=== PATIENT | female | born 1945 | race Caucasian/White ===

== ENCOUNTER → 2018-03-26 | Outpatient (CLI) | payer OTHER ==
[~2018-03-26] MED LIST: ADULT LOW DOSE81 MG PO; ALLOPURINOL 10100 M1 PO; ASPIR 8181 MG PO; CIPRO250 M1 PO; CLARITIN10 M1 PO; FISH OIL 1,0001 EAC5 PO; FISHOIL PO; FLEXERIL PO; FLONASE 0.05%50 MCG NS; HYDROCODON-ACE1 EAC7 PO; HYDROCODON-ACE1 EACH PO; LEVOTHROID100 MC1 PO; LEVOXYL100 MCG PO; LORTAB 5-500 T1 EAC1 PO; NEPHROCAPS SOFT1 CAP PO; NIACINAMIDE100 MG PO; NORVASC 5 MG TAB5 MG PO; OMEPRAZOLE20 M2 PO; PLAVIX 75 MG TA75 MG PO; RENA-VITE PO; RENAGEL PO; RENAGEL800 MG PO; RENVELA800 MG PO; SENSIPAR60 MG PO; SIMVASTATIN20 MG PO; TRIPHROCAPS SOFT1 MG PO; VENTOLIN HFA 1818 GM INH; VICODIN 5-5001 EACH PO; ZOCOR40 MG PO; ZPAK PO
== END ==
LOC: HYPER 03-20 09:46
DX: I87.333 Chronic venous hypertension (idiopathic) with ulcer and inflammation of bilateral lower extremity (principal); L97.811 Non-pressure chronic ulcer of other part of right lower leg limited to breakdown of skin; L97.821 Non-pressure chronic ulcer of other part of left lower leg limited to breakdown of skin; M86.8X8 Other osteomyelitis, other site; N18.6 End stage renal disease; N25.81 Secondary hyperparathyroidism of renal origin; I25.118 Atherosclerotic heart disease of native coronary artery with other forms of angina pectoris; I47.1 Supraventricular tachycardia; I73.9 Peripheral vascular disease, unspecified; I25.2 Old myocardial infarction; E78.5 Hyperlipidemia, unspecified; J42 Unspecified chronic bronchitis; K21.9 Gastro-esophageal reflux disease without esophagitis; M10.9 Gout, unspecified; R73.03 Prediabetes; F17.200 Nicotine dependence, unspecified, uncomplicated; Z90.710 Acquired absence of both cervix and uterus; Z98.49 Cataract extraction status, unspecified eye; Z99.2 Dependence on renal dialysis; Z87.39 Personal history of other diseases of the musculoskeletal system and connective tissue

== ENCOUNTER → 2018-04-02 | Outpatient (CLI) | payer OTHER | LOC: HYPER 07:18 | DX: I87.333 Chronic venous hypertension (idiopathic) with ulcer and inflammation of bilateral lower extremity (principal); I70.248 Atherosclerosis of native arteries of left leg with ulceration of other part of lower leg; L97.821 Non-pressure chronic ulcer of other part of left lower leg limited to breakdown of skin; I70.238 Atherosclerosis of native arteries of right leg with ulceration of other part of lower leg; L97.811 Non-pressure chronic ulcer of other part of right lower leg limited to breakdown of skin; M86.8X8 Other osteomyelitis, other site; E78.5 Hyperlipidemia, unspecified; N18.6 End stage renal disease; N25.81 Secondary hyperparathyroidism of renal origin; I25.118 Atherosclerotic heart disease of native coronary artery with other forms of angina pectoris; I47.1 Supraventricular tachycardia; I25.2 Old myocardial infarction; J42 Unspecified chronic bronchitis; R73.03 Prediabetes; M10.9 Gout, unspecified; F17.200 Nicotine dependence, unspecified, uncomplicated; Z99.2 Dependence on renal dialysis; Z87.39 Personal history of other diseases of the musculoskeletal system and connective tissue ==

== ENCOUNTER → 2018-04-16 | Outpatient (CLI) | payer OTHER | LOC: HYPER 07:21 | DX: I87.333 Chronic venous hypertension (idiopathic) with ulcer and inflammation of bilateral lower extremity (principal); I70.238 Atherosclerosis of native arteries of right leg with ulceration of other part of lower leg; L97.812 Non-pressure chronic ulcer of other part of right lower leg with fat layer exposed; I70.248 Atherosclerosis of native arteries of left leg with ulceration of other part of lower leg; L97.821 Non-pressure chronic ulcer of other part of left lower leg limited to breakdown of skin; M86.8X8 Other osteomyelitis, other site; E78.5 Hyperlipidemia, unspecified; I25.118 Atherosclerotic heart disease of native coronary artery with other forms of angina pectoris; I47.1 Supraventricular tachycardia; I25.2 Old myocardial infarction; J42 Unspecified chronic bronchitis; M10.9 Gout, unspecified; N18.6 End stage renal disease; N25.81 Secondary hyperparathyroidism of renal origin; R73.03 Prediabetes; F17.200 Nicotine dependence, unspecified, uncomplicated; Z99.2 Dependence on renal dialysis; Z87.39 Personal history of other diseases of the musculoskeletal system and connective tissue ==

== ENCOUNTER → 2018-06-11 | Outpatient (CLI) | payer OTHER | LOC: HYPER 04-30 15:43 | DX: I87.333 Chronic venous hypertension (idiopathic) with ulcer and inflammation of bilateral lower extremity (principal); I70.238 Atherosclerosis of native arteries of right leg with ulceration of other part of lower leg; L97.811 Non-pressure chronic ulcer of other part of right lower leg limited to breakdown of skin; I70.248 Atherosclerosis of native arteries of left leg with ulceration of other part of lower leg; L97.821 Non-pressure chronic ulcer of other part of left lower leg limited to breakdown of skin; M86.8X8 Other osteomyelitis, other site; E78.5 Hyperlipidemia, unspecified; I12.0 Hypertensive chronic kidney disease with stage 5 chronic kidney disease or end stage renal disease; N18.6 End stage renal disease; N25.81 Secondary hyperparathyroidism of renal origin; I25.118 Atherosclerotic heart disease of native coronary artery with other forms of angina pectoris; I47.1 Supraventricular tachycardia; I25.2 Old myocardial infarction; J42 Unspecified chronic bronchitis; M10.9 Gout, unspecified; R73.03 Prediabetes; F17.200 Nicotine dependence, unspecified, uncomplicated; Z99.2 Dependence on renal dialysis; Z87.39 Personal history of other diseases of the musculoskeletal system and connective tissue ==

== ENCOUNTER → 2018-06-18 | Outpatient (CLI) | payer OTHER | LOC: HYPER 07:03 | DX: I87.333 Chronic venous hypertension (idiopathic) with ulcer and inflammation of bilateral lower extremity (principal); I70.238 Atherosclerosis of native arteries of right leg with ulceration of other part of lower leg; L97.812 Non-pressure chronic ulcer of other part of right lower leg with fat layer exposed; I70.248 Atherosclerosis of native arteries of left leg with ulceration of other part of lower leg; L97.822 Non-pressure chronic ulcer of other part of left lower leg with fat layer exposed; M86.8X8 Other osteomyelitis, other site; E78.5 Hyperlipidemia, unspecified; I25.118 Atherosclerotic heart disease of native coronary artery with other forms of angina pectoris; I47.1 Supraventricular tachycardia; I25.2 Old myocardial infarction; J42 Unspecified chronic bronchitis; N18.6 End stage renal disease; M10.9 Gout, unspecified; R73.03 Prediabetes; F17.200 Nicotine dependence, unspecified, uncomplicated; Z99.2 Dependence on renal dialysis; Z87.39 Personal history of other diseases of the musculoskeletal system and connective tissue ==

== ENCOUNTER → 2018-06-25 | Outpatient (CLI) | payer OTHER | LOC: HYPER 06:36 | DX: I87.333 Chronic venous hypertension (idiopathic) with ulcer and inflammation of bilateral lower extremity (principal); I70.248 Atherosclerosis of native arteries of left leg with ulceration of other part of lower leg; L97.822 Non-pressure chronic ulcer of other part of left lower leg with fat layer exposed; I70.238 Atherosclerosis of native arteries of right leg with ulceration of other part of lower leg; L97.812 Non-pressure chronic ulcer of other part of right lower leg with fat layer exposed; M86.8X8 Other osteomyelitis, other site; E78.5 Hyperlipidemia, unspecified; I12.0 Hypertensive chronic kidney disease with stage 5 chronic kidney disease or end stage renal disease; N18.6 End stage renal disease; N25.81 Secondary hyperparathyroidism of renal origin; I25.118 Atherosclerotic heart disease of native coronary artery with other forms of angina pectoris; I47.1 Supraventricular tachycardia; I25.2 Old myocardial infarction; J42 Unspecified chronic bronchitis; M10.9 Gout, unspecified; R73.03 Prediabetes; F17.200 Nicotine dependence, unspecified, uncomplicated; Z99.2 Dependence on renal dialysis; Z87.39 Personal history of other diseases of the musculoskeletal system and connective tissue ==

== ENCOUNTER → 2018-07-02 | Outpatient (CLI) | payer OTHER | LOC: HYPER 06:56 | DX: I87.333 Chronic venous hypertension (idiopathic) with ulcer and inflammation of bilateral lower extremity (principal); I70.238 Atherosclerosis of native arteries of right leg with ulceration of other part of lower leg; L97.812 Non-pressure chronic ulcer of other part of right lower leg with fat layer exposed; I70.248 Atherosclerosis of native arteries of left leg with ulceration of other part of lower leg; L97.822 Non-pressure chronic ulcer of other part of left lower leg with fat layer exposed; M86.8X8 Other osteomyelitis, other site; E78.5 Hyperlipidemia, unspecified; I12.0 Hypertensive chronic kidney disease with stage 5 chronic kidney disease or end stage renal disease; N18.6 End stage renal disease; N25.81 Secondary hyperparathyroidism of renal origin; I25.118 Atherosclerotic heart disease of native coronary artery with other forms of angina pectoris; I47.1 Supraventricular tachycardia; I25.2 Old myocardial infarction; M10.9 Gout, unspecified; R73.03 Prediabetes; F17.200 Nicotine dependence, unspecified, uncomplicated; Z99.2 Dependence on renal dialysis; Z87.39 Personal history of other diseases of the musculoskeletal system and connective tissue ==

== ENCOUNTER → 2018-07-09 | Outpatient (CLI) | payer OTHER | LOC: HYPER 07:46 | DX: I87.333 Chronic venous hypertension (idiopathic) with ulcer and inflammation of bilateral lower extremity (principal); I70.248 Atherosclerosis of native arteries of left leg with ulceration of other part of lower leg; I70.238 Atherosclerosis of native arteries of right leg with ulceration of other part of lower leg; L97.812 Non-pressure chronic ulcer of other part of right lower leg with fat layer exposed; L97.822 Non-pressure chronic ulcer of other part of left lower leg with fat layer exposed; M86.8X8 Other osteomyelitis, other site; E78.5 Hyperlipidemia, unspecified; I12.0 Hypertensive chronic kidney disease with stage 5 chronic kidney disease or end stage renal disease; N18.6 End stage renal disease; I25.118 Atherosclerotic heart disease of native coronary artery with other forms of angina pectoris; I47.1 Supraventricular tachycardia; I25.2 Old myocardial infarction; J42 Unspecified chronic bronchitis; M10.9 Gout, unspecified; N25.81 Secondary hyperparathyroidism of renal origin; R73.03 Prediabetes; F17.200 Nicotine dependence, unspecified, uncomplicated; Z99.2 Dependence on renal dialysis; Z87.39 Personal history of other diseases of the musculoskeletal system and connective tissue ==

== ENCOUNTER → 2018-07-16 | Outpatient (CLI) | payer OTHER | LOC: HYPER 07:20 | DX: I87.333 Chronic venous hypertension (idiopathic) with ulcer and inflammation of bilateral lower extremity (principal); I70.238 Atherosclerosis of native arteries of right leg with ulceration of other part of lower leg; L97.812 Non-pressure chronic ulcer of other part of right lower leg with fat layer exposed; I70.248 Atherosclerosis of native arteries of left leg with ulceration of other part of lower leg; L97.821 Non-pressure chronic ulcer of other part of left lower leg limited to breakdown of skin; L03.818 Cellulitis of other sites; N18.6 End stage renal disease; N25.81 Secondary hyperparathyroidism of renal origin; I47.1 Supraventricular tachycardia; I25.2 Old myocardial infarction; I25.10 Atherosclerotic heart disease of native coronary artery without angina pectoris; E78.5 Hyperlipidemia, unspecified; M86.8X8 Other osteomyelitis, other site; M10.9 Gout, unspecified; R73.03 Prediabetes; J42 Unspecified chronic bronchitis; F17.200 Nicotine dependence, unspecified, uncomplicated; Z99.2 Dependence on renal dialysis; Z87.39 Personal history of other diseases of the musculoskeletal system and connective tissue ==

== ENCOUNTER → 2018-07-23 | Outpatient (CLI) | payer OTHER | LOC: HYPER 07:06 | DX: I87.331 Chronic venous hypertension (idiopathic) with ulcer and inflammation of right lower extremity (principal); I70.238 Atherosclerosis of native arteries of right leg with ulceration of other part of lower leg; L97.812 Non-pressure chronic ulcer of other part of right lower leg with fat layer exposed; S80.822D Blister (nonthermal), left lower leg, subsequent encounter; M86.8X8 Other osteomyelitis, other site; E78.5 Hyperlipidemia, unspecified; I12.0 Hypertensive chronic kidney disease with stage 5 chronic kidney disease or end stage renal disease; N18.6 End stage renal disease; I25.118 Atherosclerotic heart disease of native coronary artery with other forms of angina pectoris; I25.2 Old myocardial infarction; I47.1 Supraventricular tachycardia; J42 Unspecified chronic bronchitis; M10.9 Gout, unspecified; N25.81 Secondary hyperparathyroidism of renal origin; R73.03 Prediabetes; F17.200 Nicotine dependence, unspecified, uncomplicated; Z99.2 Dependence on renal dialysis; Z87.39 Personal history of other diseases of the musculoskeletal system and connective tissue; X58.XXXD Exposure to other specified factors, subsequent encounter ==

== ENCOUNTER → 2018-07-30 | Outpatient (CLI) | payer OTHER | LOC: HYPER 07:07 | DX: I87.333 Chronic venous hypertension (idiopathic) with ulcer and inflammation of bilateral lower extremity (principal); I70.248 Atherosclerosis of native arteries of left leg with ulceration of other part of lower leg; L97.822 Non-pressure chronic ulcer of other part of left lower leg with fat layer exposed; I70.238 Atherosclerosis of native arteries of right leg with ulceration of other part of lower leg; L97.812 Non-pressure chronic ulcer of other part of right lower leg with fat layer exposed; E78.5 Hyperlipidemia, unspecified; I12.0 Hypertensive chronic kidney disease with stage 5 chronic kidney disease or end stage renal disease; N18.6 End stage renal disease; I25.118 Atherosclerotic heart disease of native coronary artery with other forms of angina pectoris; I47.1 Supraventricular tachycardia; I25.2 Old myocardial infarction; J42 Unspecified chronic bronchitis; N25.81 Secondary hyperparathyroidism of renal origin; M86.8X8 Other osteomyelitis, other site; M10.9 Gout, unspecified; R73.03 Prediabetes; F17.200 Nicotine dependence, unspecified, uncomplicated; Z99.2 Dependence on renal dialysis; Z87.39 Personal history of other diseases of the musculoskeletal system and connective tissue ==

== ENCOUNTER → 2018-08-08 | Outpatient (CLI) | payer OTHER | LOC: HYPER 06:58 | DX: I87.333 Chronic venous hypertension (idiopathic) with ulcer and inflammation of bilateral lower extremity (principal); L97.822 Non-pressure chronic ulcer of other part of left lower leg with fat layer exposed; L97.111 Non-pressure chronic ulcer of right thigh limited to breakdown of skin; E11.22 Type 2 diabetes mellitus with diabetic chronic kidney disease; N18.6 End stage renal disease; I73.9 Peripheral vascular disease, unspecified; I25.2 Old myocardial infarction; I25.10 Atherosclerotic heart disease of native coronary artery without angina pectoris; E78.5 Hyperlipidemia, unspecified; N25.81 Secondary hyperparathyroidism of renal origin; I25.118 Atherosclerotic heart disease of native coronary artery with other forms of angina pectoris; I47.1 Supraventricular tachycardia; M86.8X8 Other osteomyelitis, other site; M10.9 Gout, unspecified; J42 Unspecified chronic bronchitis; F17.200 Nicotine dependence, unspecified, uncomplicated; Z87.39 Personal history of other diseases of the musculoskeletal system and connective tissue; Z95.0 Presence of cardiac pacemaker ==

== ENCOUNTER → 2018-08-20 | Outpatient (CLI) | payer OTHER | LOC: HYPER 07:17 | DX: I87.332 Chronic venous hypertension (idiopathic) with ulcer and inflammation of left lower extremity (principal); L97.822 Non-pressure chronic ulcer of other part of left lower leg with fat layer exposed; L97.322 Non-pressure chronic ulcer of left ankle with fat layer exposed; L97.111 Non-pressure chronic ulcer of right thigh limited to breakdown of skin; M86.8X8 Other osteomyelitis, other site; E78.5 Hyperlipidemia, unspecified; I25.118 Atherosclerotic heart disease of native coronary artery with other forms of angina pectoris; I25.2 Old myocardial infarction; I73.9 Peripheral vascular disease, unspecified; I47.1 Supraventricular tachycardia; J42 Unspecified chronic bronchitis; N25.81 Secondary hyperparathyroidism of renal origin; N18.6 End stage renal disease; M10.9 Gout, unspecified; R73.03 Prediabetes; F17.200 Nicotine dependence, unspecified, uncomplicated; Z87.39 Personal history of other diseases of the musculoskeletal system and connective tissue; Z99.2 Dependence on renal dialysis ==

== ENCOUNTER → 2018-08-27 | Outpatient (CLI) | payer OTHER | LOC: HYPER 07:47 | DX: I87.312 Chronic venous hypertension (idiopathic) with ulcer of left lower extremity (principal); L97.322 Non-pressure chronic ulcer of left ankle with fat layer exposed; L03.115 Cellulitis of right lower limb; L03.116 Cellulitis of left lower limb; E78.5 Hyperlipidemia, unspecified; M86.8X8 Other osteomyelitis, other site; I12.0 Hypertensive chronic kidney disease with stage 5 chronic kidney disease or end stage renal disease; N18.6 End stage renal disease; R73.03 Prediabetes; N25.81 Secondary hyperparathyroidism of renal origin; I25.118 Atherosclerotic heart disease of native coronary artery with other forms of angina pectoris; I47.1 Supraventricular tachycardia; I73.9 Peripheral vascular disease, unspecified; I25.2 Old myocardial infarction; J42 Unspecified chronic bronchitis; M10.9 Gout, unspecified; F17.200 Nicotine dependence, unspecified, uncomplicated; Z99.2 Dependence on renal dialysis; Z87.39 Personal history of other diseases of the musculoskeletal system and connective tissue ==

== ENCOUNTER → 2018-09-10 | Outpatient (CLI) | payer OTHER | LOC: HYPER 06:59 | DX: I87.312 Chronic venous hypertension (idiopathic) with ulcer of left lower extremity (principal); L97.822 Non-pressure chronic ulcer of other part of left lower leg with fat layer exposed; N18.6 End stage renal disease; I25.118 Atherosclerotic heart disease of native coronary artery with other forms of angina pectoris; L03.116 Cellulitis of left lower limb; I73.9 Peripheral vascular disease, unspecified; I25.10 Atherosclerotic heart disease of native coronary artery without angina pectoris; L03.115 Cellulitis of right lower limb; I47.1 Supraventricular tachycardia; I25.2 Old myocardial infarction; N25.81 Secondary hyperparathyroidism of renal origin; R60.0 Localized edema; M10.9 Gout, unspecified; M86.8X8 Other osteomyelitis, other site; R73.03 Prediabetes; J42 Unspecified chronic bronchitis; F17.200 Nicotine dependence, unspecified, uncomplicated; Z87.39 Personal history of other diseases of the musculoskeletal system and connective tissue; Z95.0 Presence of cardiac pacemaker ==

== ENCOUNTER → 2018-09-17 | Outpatient (CLI) | payer OTHER | LOC: HYPER 06:56 | DX: I87.312 Chronic venous hypertension (idiopathic) with ulcer of left lower extremity (principal); L97.822 Non-pressure chronic ulcer of other part of left lower leg with fat layer exposed; S80.822D Blister (nonthermal), left lower leg, subsequent encounter; S80.812D Abrasion, left lower leg, subsequent encounter; R60.0 Localized edema; R73.03 Prediabetes; M86.8X8 Other osteomyelitis, other site; E78.5 Hyperlipidemia, unspecified; N18.6 End stage renal disease; N25.81 Secondary hyperparathyroidism of renal origin; I25.118 Atherosclerotic heart disease of native coronary artery with other forms of angina pectoris; I47.1 Supraventricular tachycardia; I73.9 Peripheral vascular disease, unspecified; I25.2 Old myocardial infarction; J42 Unspecified chronic bronchitis; M10.9 Gout, unspecified; F17.200 Nicotine dependence, unspecified, uncomplicated; Z99.2 Dependence on renal dialysis; Z87.39 Personal history of other diseases of the musculoskeletal system and connective tissue; X58.XXXD Exposure to other specified factors, subsequent encounter ==

== ENCOUNTER → 2018-09-24 | Outpatient (CLI) | payer OTHER | LOC: HYPER 07:03 | DX: I87.312 Chronic venous hypertension (idiopathic) with ulcer of left lower extremity (principal); L97.822 Non-pressure chronic ulcer of other part of left lower leg with fat layer exposed; L03.116 Cellulitis of left lower limb; L03.115 Cellulitis of right lower limb; E78.5 Hyperlipidemia, unspecified; I12.0 Hypertensive chronic kidney disease with stage 5 chronic kidney disease or end stage renal disease; N18.6 End stage renal disease; I25.118 Atherosclerotic heart disease of native coronary artery with other forms of angina pectoris; I47.1 Supraventricular tachycardia; I73.9 Peripheral vascular disease, unspecified; I25.2 Old myocardial infarction; R73.03 Prediabetes; R60.0 Localized edema; N25.81 Secondary hyperparathyroidism of renal origin; J42 Unspecified chronic bronchitis; M86.8X8 Other osteomyelitis, other site; M10.9 Gout, unspecified; F17.200 Nicotine dependence, unspecified, uncomplicated; Z99.2 Dependence on renal dialysis; Z87.39 Personal history of other diseases of the musculoskeletal system and connective tissue ==

== ENCOUNTER 2018-09-25 08:01 | Inpatient (IN) | payer OTHER ==
[2018-09-25] VITALS (44 sets, daily range): BP systolic 70–126; BP diastolic 30–94
[~2018-09-25] VITALS: Ht 162.6 cm; Wt 107.4 kg
--- NOTE | ~2018-09-25 | HC ---
[facility] [place] [address] CONSULTATION Name: GINA HUGHES Room #: 360-P [facility] IN M.R.#: [id number] Admission: 09/25/18 ������������������ Attend Phys: Guanaco Holm MD Discharge: 10/03/18 ������������������ Date of : 47 Report #: [id number] THIS REPORT FOR: //name// CC: Guanaco Stevenihsan Hyatt DATE OF SERVICE: 09/26/2018 CHIEF COMPLAINT: Venous versus arterial ulceration to the left leg and a yeast dermatitis. HISTORY OF PRESENT ILLNESS: This is a 73-year-old female patient with a history of end-stage renal disease, hypertension and hyperlipidemia, was admitted with hypotension and lightheadedness and headaches. She was also noted to have the ulceration on her left leg and yeast dermatitis, for which I have been asked to see her. The patient does complain of some pain in her leg. She has been seen in the wound clinic as well. PAST MEDICAL HISTORY: Positive for hypercholesterolemia, hypertension, chronic renal failure. Previous pelvic fracture, back pain, degenerative arthritis and cardiac ablation in the past. SOCIAL HISTORY: Positive for being a former smoker. No alcohol use. FAMILY HISTORY: Noncontributory. REVIEW OF SYSTEMS: CONSTITUTIONAL: The patient denies fever, chills or weight loss. NEUROLOGICAL: The patient denies focal weakness, numbness or tingling. EYES: The patient denies visual changes, redness or drainage. ENT: The patient denies earache, nasal drainage or sore throat. CARDIOVASCULAR: The patient denies chest pain, palpitations or diaphoresis. PULMONARY: The patient denies cough or shortness of breath. GASTROINTESTINAL: The patient denies nausea or abdominal pain. ORTHOPEDIC: The patient is aware of the ulceration on her left leg with some pain associated with this. PHYSICAL EXAMINATION: VITAL SIGNS: At this time include temperature 36.4, pulse 87, respiratory rate 13, blood pressure 96/51. GENERAL: This is a chronically ill-appearing female patient who appears to be in minimal distress. HEENT: Head normocephalic. Nose and throat are clear. NECK: Supple. LUNGS: Clear. HEART: Irregular without murmur. [facility] [address] [place] [address] CONSULTATION Name: GINA HUGHES Room #: 360-P [facility] IN M.R.#: [id number] Admission: 09/25/18 ������������������ Attend Phys: Guanaco Holm MD Discharge: 10/03/18 ������������������ Date of : 47 Report #: [id number] ABDOMEN: Soft. Bowel sounds present. Perineal examination demonstrates moderate skin fold yeast dermatitis to the periarea beneath the abdominal folds. EXTREMITIES: Lower extremities demonstrate venous dermatitis bilaterally. She has an ulceration on her left lateral lower leg, it does have an appearance of venous stasis dermatitis. Distal pulses are diminished, however. LABORATORY DATA: Includes a sodium 130, potassium 5.1, chloride 93, CO2 of 21, BUN 41, creatinine 5.9, glucose is 222. White blood cell count is 19.6, with hemoglobin of 13.7. CLINICAL IMPRESSION: 1. Venous versus arterial ulceration of the left lower leg. 2. Venous stasis dermatitis, bilateral lower extremities. 3. Yeast dermatitis to the abdominal fold in the perineal area. 4. End-stage renal disease, requiring hemodialysis. RECOMMENDATIONS: At this point, I will recommend nystatin cream to the periarea twice daily. She will need a low air loss mattress, q.2 hour turning and positioning. We will recommend Medihoney and then a bordered foam to the left leg. We will check arterial Dopplers. She may require angiography at some point in time. I do appreciate being asked to see her in consultation. ��������������������������������������������� ���������������������������������������� By: ��������������������������������������������� 1930 1632 Charles Robert MD /nt
--- NOTE | ~2018-09-25 | HC ---
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 She was admitted with worsening blood pressure and noted to have shock with likely multifactorial, components to her hypotension. She has been in the intensive care unit, is on pressors and midodrine. She has a nonhealing left foot ulcer, also has bilateral infiltrates. She also has litzy pannus infection. Nephrology is closely involved along with multiple medical consultants and Infectious Disease. She has hypothyroidism with TSH elevated and is on Synthroid. We are seeing her in rehabilitation medicine consultation. PAST MEDICAL HISTORY: Includes cardiac ablation in 2002 secondary to atrial fibrillation. She has a chronic left calf wound. She has significant obesity, degenerative arthritis, prior history of a pelvis fracture. MEDICATIONS: Please see the full medication listing. SOCIAL HISTORY: Lives in a house with her . Premorbid cane ambulator in the last couple of years. There is one step into the house. 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 She does some driving. Her is retired, does the laundry, etc. and could be of assistance. She has a daughter in [place]. REVIEW OF SYSTEMS: Did not offer any current complaints of chest pain or shortness of breath or abdominal discomfort. She complains of being significantly weak. Denies any distal numbness or tingling and does not note a history of any type of neuropathy. PHYSICAL EXAMINATION: GENERAL: She is a pleasant, obese 73-year-old white female in no obvious distress. VITAL SIGNS: Last recorded temperature 96.6, pulse 82, respirations 9, blood pressure is 97/57. NEUROLOGIC: She is seen in the intensive care unit. Currently undergoing dialysis. Facies are symmetric. Functional range of motion of the right upper extremity, strength is a grade 4-/5. Left upper extremity has the dialysis catheter in place. She is able to move her thumb and fingers. I did not test her proximal strength. Lower extremities, no focal calf swelling. I would grade her strength at probably a grade 3+ to 4-/5. [place] [address] CONSULTATION Name: GINA HUGHES Room #: 360-P [facility] IN M.R.#: [id number] Admission: 09/25/18 ������������������ Attend Phys: Guanaco Holm MD Discharge: ������������������ Date of : 47 Report #: [id number] come sit to stand when last tested by physical therapy and ambulated 12 feet min assist with a front-wheeled walker. ASSESSMENT: A 73-year-old white female with the following problems: 1. 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 2. Shock with multifactorial hypotension. 3. Ongoing Intensive Care Unit stay. 4. Nonhealing left foot ulcer. 5. Bilateral infiltrates. 6. History of hypertension. 7. End-stage renal disease, on hemodialysis. 8. History of cardiac ablation secondary to atrial fibrillation. 9. Litzy pannus infection. PLAN: Therapies are continuing to work with her. She certainly may warrant an acute in-hospital inpatient rehabilitation stay as she further medically stabilizes. We will be glad to follow along with you regarding her rehab therapy needs. ��������������������������������������������� ���������������������������������������� By: ��������������������������������������������� [id number] Rachid Galvan MD /LAURY
--- NOTE | ~2018-09-25 | HC ---
[facility] [place] [address] CONSULTATION Name: GINA HUGHES Room #: 238-P ADM IN M.R.#: [id number] Admission: 09/25/18 ������������������ Attend Phys: Guanaco Holm MD Discharge: ������������������ Date of : 47 Report #: [id number] THIS REPORT FOR: //name// CC: Guanaco Holm Jr Hyatt DATE OF SERVICE: 09/25/2018 ATTENDING PHYSICIAN: Dr. Guanaco Holm. REASON FOR CONSULTATION: End-stage renal disease. HISTORY OF PRESENT ILLNESS: The patient is known to our service, has dialyzed for the last 12 years at [facility]. She has developed progressive hypotension and volume overload with lower extremity swelling, weeping and ulcerations. Ultrafiltration has been unsuccessful due to low blood pressure. Today in dialysis, she became even more hypotensive with blood pressures into the 40s and 50s and became nauseated, presyncopal and was brought to the Emergency Room here at [place]. PAST MEDICAL HISTORY: Longstanding end-stage renal disease. She has a history of prior hypertension, now hypotension as mentioned. She has had previous cholecystectomy and hysterectomy. She had a thyroid mass removed recently. She also has a history of coronary artery disease, status post PCI with coronary artery stenting, sick sinus syndrome with pacemaker, prior history of hyperkalemia as well as fluid overload as mentioned. HOME MEDICATIONS: As listed include albuterol inhaler, aspirin 81 mg daily, Flexeril 10 mg every 8 hours, Nephrocaps 1 daily, hydrocodone p.r.n., Levoxyl 0.1 mg daily, Claritin p.r.n., omeprazole 20 mg daily, sevelamer 800 mg t.i.d. with meals and simvastatin 20 mg daily. FAMILY HISTORY: No renal disease. SOCIAL HISTORY: No cigarettes or alcohol. Lives at home with her . REVIEW OF SYSTEMS: GENERAL: She has been feeling poorly. EYES: No problems with her vision. ENT: Hearing okay, swallows okay. Denies mouth sores or ulcers. ENDOCRINE: Positive for the hypothyroidism. RESPIRATORY: Denies shortness of air, cough, or hemoptysis. CARDIAC: She has a pacemaker. Denies chest pain. She has had previous MD, but not currently having angina. She does have a chronic lower leg swelling. GASTROINTESTINAL: No nausea, vomiting, diarrhea or bloody stools. GENITOURINARY: Makes very little urine. [facility] [address] [place] [address] CONSULTATION Name: GINA HUGHES Room #: 238-P [facility] IN .R.#: [id number] Admission: 09/25/18 ������������������ Attend Phys: Guanaco Holm MD Discharge: ������������������ Date of : 47 Report #: [id number] NEUROLOGIC: She has been somewhat faint and weak. MUSCULOSKELETAL: No substantial arthritis. PHYSICAL EXAMINATION: GENERAL: This is a somewhat ill-appearing, somewhat faint patient seen in the ICU. She is on Levophed. VITAL SIGNS: Blood pressure 80/40. SKIN: Otherwise, unremarkable except for dressings over the lower extremities, which she apparently has some ulcerations. SKELETAL: Shows her to be somewhat overweight. HEENT: Extraocular movements are full. Vision intact. No scleral icterus. Hearing intact. Mucous membranes dry. NECK: Veins are flat. CHEST: Clear to auscultation. HEART: Regular. ABDOMEN: Soft and nontender. EXTREMITIES: Show edema below the knees somewhat brawny and pitting. LABORATORY DATA: Hemoglobin 11.9, platelets 165. Sodium 134, potassium 4.8, chloride 93, bicarbonate 26, creatinine 5.4, BUN 31. ASSESSMENT AND PLAN: 1. Hypotension. She has rather marked hypotension. She is being evaluated for adrenal insufficiency, sepsis, but in all likelihood has progressive autonomic failure due to longstanding end-stage renal disease. She is on Levophed, probably will need to be converted over to midodrine. Volume status actually appears to be pretty good at the current time. 2. End-stage renal disease, on dialysis x 12 years. 3. Coronary artery disease with history of diastolic dysfunction. She has had 2 prior coronary stents. 4. Sick sinus syndrome with pacemaker, that will have to be evaluated by Dr. Edwards. ��������������������������������������������� ���������������������������������������� By: ��������������������������������������������� 1106 [id number] Matias Cano MD /nt
[2018-09-25 08:30] LABS: ABSOLUTE NEUTROPHILS 11.2 thou/uL (1.4-8.2); BASOPHILS 0.6 % (0.0-2.0); EOSINOPHILS 0.6 % (0.0-3.0); HEMATOCRIT 37.9 % (37.0-47.0); HEMOGLOBIN 11.9 gm/dL (12.0-15.0); MCH 28.9 pg (26.0-34.0); MCHC 31.4 g/dL (28.0-37.0); MONOCYTES 5.5 % (1.0-8.0); PLATELET COUNT 165 thou/uL (150-400); POLYS 87.3 % (36.0-66.0); RBC 4.12 mil/uL (4.20-5.00); RDW 18.1 % (10.5-14.5); WBC 12.8 thou/uL (4.0-11.0)
[2018-09-25 08:40] LABS: ANION GAP 15 mmol/L (7-16); BUN 31 mg/dL (7-18); CALCIUM 7.9 mg/dL (8.5-10.1); CHLORIDE 93 mmol/L (98-107); CO2 26 mmol/L (21-32); CREATININE 5.4 mg/dL (0.6-1.0); GLUCOSE 129 mg/dL (74-106); POTASSIUM 4.8 mmol/L (3.5-5.1); SODIUM 134 mmol/L (136-145)
[2018-09-25 08:50] LABS: ALBUMIN 3.1 g/dL (3.4-5.0); MAGNESIUM 1.8 mg/dL (1.8-2.4); SGOT 28 U/L (15-37); SGPT 13 U/L (30-65); TOTAL BILIRUBIN 1.3 mg/dL (<0.1-1.0); TOTAL PROTEIN 6.8 g/dL (6.4-8.2); TROPONIN-I <0.06 ng/mL (<0.06)
[2018-09-25 09:13] LABS: ANISOCYTOSIS 1+; PLATELET ESTIMATE NORMAL
--- NOTE | 2018-09-25 09:50 | NUR ---
VASCULAR ACCESS CONSULTED FOR CVAD, PT IS ON DIALYSIS. FISTULA IS ON LEFT SIDE. UPON ASSESSING RIJ, VESSEL IS LARGE BUT NONCOMPRESSABLE, SCAR NOTED ON UPPER CHEST/NECK, PT STATES HAD THYROID TUMOR REMOVED. ATTEMPT ABORTED FOR CL. DR OLIVER NOTIFIED THAT VESSEL NONCOMPRESSABLE AND IR ALSO NOTIFIED,MESSAGE ON VOICE MAIL.DR OLIVER ORDERING CL PER IR.
--- NOTE | 2018-09-25 11:34 | EKG ---
[address] [address] ELECTROCARDIOGRAM REPORT Name: GINA HUGHES Room #: 170-10 ADM IN M.R.#: [id number] ������������������ Admission: 09/25/18 ������������������ Attend Phys: Guanaco Holm MD Discharge: ������������������ Date of : 47 Report #: [id number] ����������������������������������������������������������������� [id number] THIS REPORT FOR: //name// [facility] ED Test Date: 2018-09-25 Test Time: 08:43:06 Pat Name: GINA HUGHES Department: Room: 170 Gender: F Plate Mounter: [facility] : 1945 Requested By: Galo Sweeney Order Number: [id number] MD: Sixto Edwards Measurements Intervals Kechi Rate: 92 P: GA: QRS: 107 QRSD: 134 T: 136 QT: 371 QTc: 459 Interpretive Statements Atrial fibrillation RBBB and LPFB Abnormal T, consider ischemia, lateral leads Compared to ECG 11/16/2013 17:54:51 Electronically Signed On 09-25-2018 11:33:54 CDT by Sixto Edwards [email or web address] ��������������������������������������������� <ELECTRONICALLY SIGNED> ���������������������������������������� By: Sixto Edwards MD ��������������������������������������������� 09/25/18 1133 [id number] Sixto Edwards MD /DIRK
--- NOTE | 2018-09-25 11:52 | 2DMMODE ---
[facility] [employer] [place] [address] 2 D/M-MODE ECHOCARDIOGRAM Name: GINA HUGHES Room #: 170-10 ADM IN ..#: [id number] ������������� Admission: 09/25/18 ������������� Attend Phys: Guanaco Holm, Discharge: ��� ������������� ��� Date of : 47 Date of Service: 09/25/18 1151 �� Report #: [id number] �������� ��������������������������������������������[id number] THIS REPORT FOR: //name// APPROVED REPORT Study performed: 09/25/2018 10:15:28 EXAM: Comprehensive 2D, Doppler, and color-flow Echocardiogram Patient Location: ER TO ICU Status: routine BSA: 2.11 BP: 61/33 mmHg Rhythm: Atrial Fibrillation Other Information Study Quality: Adequate Technically limited study due to patient flat on back, morbid obesity, limited cooperation. Indications Hypotension. Hx: Cardiac ablation, pacemaker, HTN, HLP. 2D Dimensions RVDd: 49.87 mm IVSd: 10.86 (7-11mm) LVOT Diam: 20.33 (18-24mm) LVDd: 48.93 mm PWd: 11.15 (7-11mm) Ascending Ao: 32.85 (22-36mm) LVDs: 36.77 (25-40mm) Aortic Root: 31.51 mm Volumes Left Atrial Volume (Systole) Single Plane 4CH: 63.35 mL Single Plane 2CH: 78.73 mL LA ESV Index: 36.00 mL/m2 Aortic Valve AoV Peak Alexis.: 2.04 m/s AO Peak Gr.: 16.77 mmHg LVOT Max P.63 mmHg AO Mean Gr.: 10.27 mmHg AO V2 Mean: 1.54 m/s LVOT Max V: 0.81 m/s AO V2 VTI: 34.00 cm JOHN Vmax: 1.28 cm2 [facility] [employer] [place] [address] 2 D/M-MODE ECHOCARDIOGRAM Name: GINA HUGHES Room #: 170-10 ADM IN M.R.#: [id number] ������������� Admission: 09/25/18 ������������� Attend Phys: Guanaco Holm, Discharge: ��� ������������� ��� Date of : 47 Date of Service: 09/25/18 1151 �� Report #: [id number] �������� ��������������������������������������������[id number] Mitral Valve MV Decel. Time: 142.82 ms MV E Max Alexis.: 1.23 m/s Pulmonary Valve PV Peak Alexis.: 0.78 m/s PV Peak Gr.: 2.46 mmHg Tricuspid Valve TR Peak Alexis.: 1.84 m/s RAP Estimate: 15.00 mmHg TR Peak Gr.: 13.52 mmHg PA Pressure: 29.00 mmHg Left Ventricle The left ventricle is normal size. There is normal left ventricular wall thickness. Left ventricular systolic function is low normal. LVEF is 50%. This study is not technically sufficient to allow evaluation of the LV diastolic function due to atrial fibrillation. Right Ventricle Right ventricle is moderately dilated. Right ventricle is hypokinetic. Pacemaker lead is present in the right ventricle. Atria Left atrium is mildly dilated. Right atrium is moderately dilated. Aortic Valve Aortic valve is moderately calcified. No aortic regurgitation is present. Mild aortic stenosis. Average peak gradient of 17mmHg and mean 10mmHg. Mitral Valve The mitral valve is normal in structure. Mild mitral annular calcification. Mild mitral regurgitation. Tricuspid Valve Poorly visualized Severe tricuspid regurgitation. Estimated PAP is 30mmHg. Pulmonic Valve The pulmonary valve is normal in structure. Mild pulmonic regurgitation. Great Vessels The aortic root is normal in size. The ascending aorta is normal in [facility] [address] [place] [address] 2 D/M-MODE ECHOCARDIOGRAM Name: GINA HUGHES Room #: 170-10 [facility] IN .R.#: [id number] ������������� Admission: 09/25/18 ������������� Attend Phys: Guanaco Holm, Discharge: ��� ������������� ��� Date of : 47 Date of Service: 09/25/18 1151 �� Report #: [id number] �������� ��������������������������������������������[id number] size. IVC is dilated and collapses <50% with inspiration. Pericardium There is no pericardial effusion. <Conclusion> The left ventricle is normal size. LVEF is 50%. Right ventricle is moderately dilated. Right ventricle is hypokinetic. Pacemaker lead is present in the right ventricle. Left atrium is mildly dilated. Right atrium is moderately dilated. Aortic valve is moderately calcified. Mild aortic stenosis. Average peak gradient of 17mmHg and mean 10mmHg. The mitral valve is normal in structure. Mild mitral annular calcification. Mild mitral regurgitation. Poorly visualized Severe tricuspid regurgitation. Estimated PAP is 30mmHg. The pulmonary valve is normal in structure. Mild pulmonic regurgitation. There is no pericardial effusion. ��������������������������������������������� <ELECTRONICALLY SIGNED> ���������������������������������������� By: Refugio Burton MD ��������������������������������������������� 09/25/18 1151 1151 1151 Refugio Burton MD /INF
--- NOTE | 2018-09-25 14:38 | NUR ---
PT IS ALERT AND ORIENTED X4. MUTLIPLE WOUNDS ON SACRUM, LEFT LOWER LEG, AND ABDOMINAL PANUS IS RED AND RAW AND IRRITATED. PT RATES PAIN A 9 ON PAIN SCALE. PAIN MEDS GIVEN RESTING AFTER PAIN MEDS APPEARS MORE COMFORTABLE. RATES PAIN A 4 AFTER. LUNGS ARE DIMINISHED. ON ROOM AIR. BLOOD PRESSURE IS STALBE APARENTLY AT DIALYSIS AND BLOOD PRESSURE GOT LOW AND FELT DIZZY. ON LEVO DRIP WITH STABLE BLOOD PRESSURE. RENAL CONSULTED ON PT. WILL CONTINUE TO MONITOR AND ASSESS PER NURSING
[2018-09-26] VITALS (43 sets, daily range): BP systolic 72–140; BP diastolic 41–80
[2018-09-26 05:32] LABS: HEMATOCRIT 42.9 % (37.0-47.0); HEMOGLOBIN 13.7 gm/dL (12.0-15.0); MCH 29.4 pg (26.0-34.0); MCHC 31.9 g/dL (28.0-37.0); MCV 92.1 fL (80.0-100.0); RBC 4.66 mil/uL (4.20-5.00); RDW 18.5 % (10.5-14.5); WBC 19.6 thou/uL (4.0-11.0)
[2018-09-26 05:59] LABS: CALCIUM 7.4 mg/dL (8.5-10.1); CREATININE 5.9 mg/dL (0.6-1.0); PHOSPHORUS 7.1 mg/dL (2.5-4.9); POTASSIUM 5.1 mmol/L (3.5-5.1); TROPONIN-I 0.13 ng/mL (<0.06)
--- NOTE | 2018-09-26 06:15 | NUR ---
ASSUMED PT CARE AT 1900 WITH NO SIGN OF DISTRESS NOTED IN PT. PT IS ALERT AND ORIENTED, SITTING IN CHAIR, DENIES ANY NEEDS AT THIS TIME, VITAL SIGNS STABLE. PT IS ON LEVO. SCHEDULED MEDS ADMINISTERED TO PT. DENIES ANY FURTHER NEEDS AT THIS TIME
--- NOTE | 2018-09-26 14:55 | NUR ---
WOUND CONSULT: PT. WAS SEEN TODAY BY DR. JORDAN AND MYSELF. PT. IS CURRENTLY BEING TREATED IN THE OUTPATIENT WOUND CLINIC BY DR. RAWLS. PT. HAS A CHRONIC VENOUS STATIS ULCER TO HER LEFT LEG. AT THIS TIME THE WOUND BED IS COVERED IN 100% YELLOW, FIBROUS, SLOUGH MATERIAL. RECOMMENDATIONS: WOUND CARE TO LEFT LEG: GENTLY CLEANSE AREA WITH WOUND CLEANSER OR NORMAL SALINE, APPLY THERAHONEY TO WOUND BED, COVER WITH ABD, WRAP WITH KERLIX, SECURE WITH TAPE. COMPLETE CARES M/W/F AND PRN. PT. AND STAFF NURSE WERE INSTRUCTED ON PLAN OF CARE.
[2018-09-27] VITALS (57 sets, daily range): BP systolic 56–107; BP diastolic 38–69
[2018-09-27 05:59] LABS: ALBUMIN 2.6 g/dL (3.4-5.0); CALCIUM 6.7 mg/dL (8.5-10.1); CREATININE 6.7 mg/dL (0.6-1.0); PHOSPHORUS 6.4 mg/dL (2.5-4.9); POTASSIUM 4.9 mmol/L (3.5-5.1)
[2018-09-27 06:00] LABS: HEMATOCRIT 39.1 % (37.0-47.0); HEMOGLOBIN 12.5 gm/dL (12.0-15.0); MCH 29.2 pg (26.0-34.0); MCV 91.4 fL (80.0-100.0); RBC 4.28 mil/uL (4.20-5.00); RDW 18.5 % (10.5-14.5); WBC 11.4 thou/uL (4.0-11.0)
--- NOTE | 2018-09-27 06:02 | NUR ---
pt aox.4 on ra. no apparent distress at rest. afib/ v paced on the monitor. on levophed for bp support. slowly titrating meds. lle wound dressing c/d/i. pt refused to get in bed. she stated she felt comfortable in the chair. no complains presently. will continue to monitor
--- NOTE | 2018-09-27 08:48 | NUR ---
WOUND FOLLOW UP: PT. WAS SEEN TODAY BY DR. JORDAN AND MYSELF. PT. ARTERIAL DOPPLER HAS NOT BEEN COMPLETED YET. PT. DRESSING IS C/D/I AT THIS TIME. PT. IS NOT COMPLAINING OF ANY PAIN AT THIS TIME. RECOMMENDATIONS: CONTINUE WITH CURRENT PLAN OF CARE. PT. AND STAFF NURSE WERE INSTRUCTED ON PLAN OF CARE.
--- NOTE | 2018-09-27 14:40 | HC ---
[facility] [place] [address] CONSULTATION Name: GINA HUGHES Room #: 238-P ADM IN M.R.#: [id number] Admission: 09/25/18 ������������������ Attend Phys: Guanaco Holm MD Discharge: ������������������ Date of : 47 Report #: [id number] THIS REPORT FOR: //name// CC: Guanaco Leeramírez Hyatt DATE OF SERVICE: 09/26/2018 REASON FOR CONSULTATION: I was asked to evaluate concerning hypotension, leukocytosis and left lower extremity wound. HISTORY OF PRESENT ILLNESS: The patient is a 73-year-old with underlying history of hypertension, atrial fibrillation, end-stage renal disease, sinus bradycardia with a permanent pacemaker who presents on 09/25/2018 with hypotension during dialysis. She had near syncopal episode. She received IV fluids. She has had no fever, chills or sweats. No PND or orthopnea symptoms. No cough or sputum production. No nausea, vomiting or diarrhea. She has had persistent edema. She has had a nonhealing pretibial wound for the last several months. This has been followed by Dr. Jacobs [facility]. After fluid resuscitation, overall, she feels better. Hemodynamically, however, she continues with blood pressures in the 90s systolic. Permanent pacemaker has been checked and appears satisfactory. She has had a previous ablation for atrial fibrillation. She did have mild increase in her troponin. Chest x-ray showed bilateral infiltrates consistent with edema. Echocardiogram had an EF of 50%. She has had no recent antibiotics prior to this admission where now she is on vancomycin and Levaquin. She has a history of PENICILLIN allergy. REVIEW OF SYSTEMS: Negative other than as described above with a 10-point review. ALLERGIES: LISINOPRIL, MORPHINE, PENICILLIN. MEDICATIONS: As noted on MAR including vancomycin and Levaquin. PAST MEDICAL HISTORY: Hypertension, end-stage renal disease, sinus bradycardia, atrial fibrillation, permanent pacemaker, hyperlipidemia, cholecystectomy, hysterectomy, tonsillectomy, left AV fistula, catheter ablation. FAMILY HISTORY: Cancer. SOCIAL HISTORY: Past smoker, no significant alcohol intake. PHYSICAL EXAMINATION: VITAL SIGNS: She is afebrile, heart rate 86, blood pressure 92/64. She had just gotten up into the recliner chair. Appeared fatigued. SKIN: With ulceration over the pretibial left lower leg with some venous stasis [facility] [address] [place] [address] CONSULTATION Name: GINA HUGHES Room #: 238-P [facility] IN M.R.#: [id number] Admission: 09/25/18 ������������������ Attend Phys: Guanaco Holm MD Discharge: ������������������ Date of : 46 Report #: [id number] changes. 1+ edema. No purulent drainage. No surrounding cellulitis. No lymphangitis, no palpable adenopathy. Eyes are without scleral icterus. Mouth without mucositis. NECK: Supple, with no thyromegaly or mass. LUNGS: Few crackles in the bases posteriorly with no consolidation. HEART: Irregular without appreciable murmur, gallop or rub. ABDOMEN: Obese. She had abdominal pannus edema. No appreciable masses or hepatosplenomegaly. RECTAL: Not performed. GENITOURINARY: External genitalia without lesion. EXTREMITIES: Without clubbing or cyanosis. NEUROLOGIC: Cranial nerves intact. Strength in upper and lower extremities was symmetric. She had general weakness to her lower extremities, but did reasonably well with physical therapy, getting her out of bed. Mood was normal. LABORATORY STUDIES: Reviewed. X-rays reviewed. Microbiology reports reviewed. IMPRESSION: 1. Hypotension combination of cardiac disease, still possible component of infection due to a finding of elevated white count. I do not find evidence of deep tissue infection in the left leg. She does have bilateral infiltrates were suspect most likely are edema, but still be a community-acquired pneumonitis. The patient, however, has not had cough or sputum production. 2. Hypotension, has baseline. 3. End-stage renal disease. 4. Underlying thyroid disease. RECOMMENDATIONS: We will continue antibiotic therapy pending culture results. Follow up chest x-ray following inpatient dialysis. Cardiology to continue to follow. Continue with wound care to her left leg and control edema. ��������������������������������������������� <ELECTRONICALLY SIGNED> ���������������������������������������� By: Galo Ang MD ��������������������������������������������� 09/27/18 1440 [id number] Galo Ang MD /nt
--- NOTE | 2018-09-27 16:33 | NUR ---
assessment-pt LIVES AT HOME WITH HER . PRIOR TO ADMISSION PT WORKED FULL-TIME AT [employer]. PT WAS DRIVING. SHE HAS A FWW, CANE THAT SHE USES NEEDED. SHE HAS A WALK-IN SHOWER. PT WAS DOING HER OWN COOKING, CLEANING AND LAUNDRY. PT HAS A DTR IN [place] AND 2 HANDICAPPED DTRS IN [place]. PT MAY NEED SOME REHAB. FOLLOWING TO ASSIST WITH DC PLANNING.
[2018-09-28] VITALS (48 sets, daily range): BP systolic 59–116; BP diastolic 33–67
--- NOTE | 2018-09-28 01:31 | NUR ---
prefers to be in the chair tonight. he has her legs up at this time. complains of headache and lower extremity pain. hydrocodone is effective for pain control. continues on the levophed gtt. map is staying greater than 50. titration per orders. careplan reviewed, progressing toward discharge goals.
[2018-09-28 05:04] LABS: HEMATOCRIT 37.7 % (37.0-47.0); MCH 29.1 pg (26.0-34.0); MCHC 31.7 g/dL (28.0-37.0); MCV 91.8 fL (80.0-100.0); RBC 4.11 mil/uL (4.20-5.00); RDW 18.5 % (10.5-14.5); WBC 9.3 thou/uL (4.0-11.0)
--- NOTE | 2018-09-28 18:02 | NUR ---
ASSUMED CARE OF PATIENT AT 1300. PATIENT SITTING UP IN THE RECLINER TO EAT LUNCH. PATIENT WAS MOVED TO THE BED FOR WOUND CARE ON HER LEFT LOWER EXTREMITY, CLEANING OF UNDERNEATH HER PANUS WITH APPLICATIONS OF CREAM AND INTERDRY. PATIENT COMPLAINS OF BURNING AT HER ANTERIOR LEFT LOWER EXTREMITY WOUND, HOWEVER SHE STATES THAT THIS WAS PRESENT PRIOR TO HER ADMIT TO [facility]. SHE NOTES MINIMAL RELIEF WITH MORPHINE/SILVADENE CREAM. PATIENT GIVEN HYDRO, ALSO WITH MINIMAL RELIEF. PATIENT'S AT THE BEDSIDE FOR A FEW HOURS. LEVOPHED MAINTAINING PT MAP GREATER THAN 55. PATIENT DENIES ANY OTHER DISCOMFORT OR CONCERNS. PATIENT HAD A PASTY , LIGHT BROWN BOWEL MOVEMENT. DURING CLEANING OF HER RECTUM WITH WIPES, THE SORE ON HER LEFT BUTTOCK BEGAN TO BLEED BRIGHT RED BLOOD WHICH WAS QUICKLY STOPPED WITH APPLICATION OF PRESSURE. SHE INITIALLY COMPLAINED OF SORENESS WHICH QUICKLY ALLEVIATED ITSELF. DIALYSIS BEGAN AT 1730 AND CONTINUED THROUGH SHIFT CHANGE. PATIENT TO CONTINUE WITH POC.
[2018-09-29] VITALS (63 sets, daily range): BP systolic 72–136; BP diastolic 29–95
[2018-09-29 04:39] LABS: HEMATOCRIT 36.8 % (37.0-47.0); MCH 29.7 pg (26.0-34.0); MCHC 32.6 g/dL (28.0-37.0); RBC 4.05 mil/uL (4.20-5.00); RDW 18.4 % (10.5-14.5); WBC 7.5 thou/uL (4.0-11.0)
[2018-09-29 05:36] LABS: CALCIUM 7.8 mg/dL (8.5-10.1); CREATININE 5.9 mg/dL (0.6-1.0); POTASSIUM 5.2 mmol/L (3.5-5.1)
--- NOTE | 2018-09-29 07:06 | NUR ---
Shift summary: no event tonight. Pt remains stable in this shift. She is well katherin HD last night, removed 3 liter per dialysis nurse. MAPs> than 55 mmHg. Levophed off completely at 0515 am. C/O burning sensation after dressing changed by am nurse possible due to wound cleanser. New dressing applied; see intervention for details.She reported pain on her LLE . Pain meds were given as chart per EMAR. No changes of LE. Slowly progressing toward POC.
--- NOTE | 2018-09-29 18:26 | NUR ---
SHIFT SUMMARY: ALERT AND ORIENTED AND HAS DENIED PAIN. VITALS STABLE, OFF LEVO. MAINTAINING MAP OF 55. UP TO THE CHAIR WITH MIN ASSIST. C/O NAUSEA EARLIER AND PRN ZOFRAN GIVEN. TOLERATING DIET. PATIENT IS ANURIC AND HEMODIALYSIS AND IS SCHEDULED FOR TX TOMORROW. AV FISTULA NOTED ON RT FA WITH BRUIT AND THRILL. WILL CONTINUE TO MONITOR.
[2018-09-30] VITALS (51 sets, daily range): BP systolic 73–170; BP diastolic 39–133
--- NOTE | 2018-09-30 03:57 | NUR ---
ASSUMED PT'S CARE AT 1900; PT. ON CHAIR; CALM; WATCHING TV; AXO4; DURING ASSESSMENT ST NO HAVING PAIN; SBP ON THE 90'S; NO C/O DIZZINESS OR HEADACHE; VS WNL; AT AROUND 2330 PT. REQUESTED TO BE BACK AT BED; PRN PAIN MEDICATION AND ICE; ABLE TO AMBULATE WITH WALKER AND GAIT BELT; PRN PAIN MEDICATION GIVEN; REQUESTED SUCKS TO BE OFF; PAIN RE-ASSESSMENT PT. SLEEPING; THROUGH THE NIGHT PT'S SBP BETWEEN THE 80'S AND 90'S; NO C/O HEADACHE OR DIZZINESS; ABLE TO REST THROUGH THE NIGHT; REFUSED TO BE TURNED; ST. "I AM OK"; ASSESSMENT CHARGED; FOLLOWING POC; WILL CONTINUE MONITORING; WILL PASS ON REPORT.
--- NOTE | 2018-09-30 14:21 | NUR ---
PATIENT SEEN BY DR. ANDERSON THIS DATE. PATIENT IS A POTENTIAL CANDIDATE FOR ACUTE REHAB WITH A QUALIFYING DIAGNOSIS. GIVER WILL CONTINUE TO FOLLOW. THANK YOU FOR THIS REFERRAL.
--- NOTE | 2018-09-30 14:39 | NUR ---
VSS REMAINS AFIB WITH VR 80'S, ALSO SOME A AND V PACING. BP [id number]/40-50, DIALYSIS TODAY, REMOVED 3L. THROUGH L FA FISTULA SITE, GOOD BRUIT. LUNGS DIMINISHED AND CLEAR O2 SAT IS 92-96% ON RA. DRESSING CHANGED , SEE WOUND CARE NOTE. WILL CONTINUE TO MONITER AND CARE FOR PT PER PLAN OF CARE
--- NOTE | 2018-09-30 15:34 | NUR ---
WOUND FOLLOW UP: PT. WAS SEEN TODAY BY DR. JORDAN AND MYSELF. PT. WOUND IS CLINICALLY NOT CHANGED AT THIS TIME. PT. REPORTS LESS PAIN AND WOUND CARE ORDERS WERE CHANGED TO AID IN HEALING. RECOMMENDATIONS: CONTINUE WITH CURRENT PLAN OF CARE. PT. AND STAFF NURSE WERE INSTRUCTED ON PLAN OF CARE.
[2018-09-30] MEDS ORDERED: GABAPENTIN 100100 MG PO (21:51)
--- NOTE | 2018-10-01 04:26 | NUR ---
PATIENT IS PROGRESSING SLOWLY IN HER CARE PLAN. VITAL SIGNS STABLE WITH PATIENT HAVING NO COMPLAINTS OF NAUSEA. PATIENT DID COMPLAIN FREQUENTLY OF PAIN IN LOWER LEGS WHICH WAS TREATED EFFECTIVELY WITH MEDICATION AND NON PHARMACOLOGICAL INTERVENTION. PATIENT IS FULLY ORIENTED AND WAS ABLE TO PARTICIPATE IN CARE. NURSE TO CHANGE PATIENTS DRESSING TO LOWER LEG BEFORE SHIFT CHANGE. SHE IS CONSIDERED A HIGH FALL RISK AND IS RESTING IN CHAIR WITH ALARM UNDER HER. SHE HAS SHOWN ABILITY TO CALL APPROPRIATELY AND HAS SHOWN NO SIGNS OF BEING IMPULSIVE. PATIENT IS TO POSSIBLE DIALYZE TODAY WITH POSSIBLE PROCEDURE SLATED FOR THE 10/02/18. CONTINUE PLAN OF CARE.
[2018-10-01 04:40] VITALS: BP 133/111; BP 92/50
[2018-10-01 08:00] VITALS: BP 88/57
[2018-10-01 11:45] VITALS: BP 83/55
--- NOTE | 2018-10-01 14:22 | NUR ---
METER READER INSPECTOR INFORMED BY SALES ORDER COORDINATOR THAT PATIENT MAY BE READY FOR ADMISSION TO ON 10/02/18. ALSO INFORMED BY PATIENT'S NURSE THAT SHE WILL HAVE PROCEDURE TOMORROW AT 1300. WILL CONTINUE TO FOLLOW AND ADMIT WHEN MEDICALLY STABLE AND ALL PROCEDURES NEEDED HAVE BEEN COMPLETED. THANK YOU FOR THIS REFERRAL.
--- NOTE | 2018-10-01 15:19 | NUR ---
SW reviewed chart and spoke with nursing and attending physician. Pt was transferred to from ICU and is progressing towards goals for discharge. Pt is currently off the unit having dialysis. Per chart, pt dialyzes at [facility] as an outpatient. Pt is scheduled to have an angiogram tomorrow. SW discussed case with rehab/pre vocational counselor, who states they are able to accept pt when she is medically stable. Discharge to is anticipated for tomorrow. ANTONELLA will follow up with pt to discuss discharge plan. ANTONELLA is following to assist as needed with discharge planning.
[2018-10-01 20:05] VITALS: BP 80/50
[2018-10-02] VITALS (12 sets, daily range): BP systolic 73–885; BP diastolic 45–76
--- NOTE | 2018-10-02 07:39 | NUR ---
SLEPT MOST OF SHIFT UP IN CHAIR. PAIN MEDICATION GIVEN PRN WITH NOTED RELIEF. MAINTAIN SAFE ENVIRONMENT. WORKING ON GOALS AND PLAN OF CARE FOR NOC. PLAN FOR PROCEDURE TODAY. NOT PROGRESSING TOWARDS DISCHARGE AT THIS TIME. CONTINUE TO ASSES CLOESLY.
--- NOTE | 2018-10-02 14:17 | NUR ---
ANTONELLA reviewed chart and spoke with nursing and attending physician. Discharge to is anticipated for tomorrow. Pt currently off the unit having angiogram and then dialysis. ANTONELLA discussed ciase with rehab nurse, who states they will be able to accept pt tomorrow. ANTONELLA is following to assist as needed with discharge planning.
[2018-10-03 04:54] VITALS: BP 100/65
[2018-10-03 07:27] VITALS: BP 113/93
--- NOTE | 2018-10-03 07:42 | NUR ---
ASSUMED CARE OF PT AT 1900. A&O, COOPERATIVE. VS STABLE. CONTROLLED A FIB ON TELE. MONITORED GROIN SITE FROM PROCEDURE, NO PAIN, BLEEDING OR HEMATOMA UNTIL SHIFT CHANGE AND 1X2cm AREA OF SEROSANGIUOS DRAINAGE ON DRESSING NOTED. MEDS GIVEN FOR PAIN, PARTIAL RELIEF. WAS ON BEDREST FOR 4 HOURS POST PROCEDURE. MOVED TO CHAIR X 2 ASSIST. STATED SHE IS FEELING MUCH BETTER. PROGRESSING WELL TOWARDS POC GOALS.
[2018-10-03 10:15] LABS: HEMATOCRIT 39.7 % (37.0-47.0); HEMOGLOBIN 12.4 gm/dL (12.0-15.0); MCH 29.1 pg (26.0-34.0); MCHC 31.1 g/dL (28.0-37.0); MCV 93.7 fL (80.0-100.0); PLATELET COUNT 140 thou/uL (150-400); RBC 4.24 mil/uL (4.20-5.00); WBC 6.7 thou/uL (4.0-11.0)
[2018-10-03 10:22] LABS: CALCIUM 8.9 mg/dL (8.5-10.1); CREATININE 4.3 mg/dL (0.6-1.0); POTASSIUM 4.8 mmol/L (3.5-5.1)
[2018-10-03 10:42] LABS: ABSOLUTE NEUTROPHILS 4.6 thou/uL (1.4-8.2); ANISOCYTOSIS 2+; METAMYELOCYTES 2 %; MYELOCYTES 1 %
[2018-10-03 12:13] VITALS: BP 71/41
[2018-10-03] MEDS ORDERED: PLAVIX 75 MG TA75 M1 PO (12:34)
[2018-10-03] MEDS ORDERED: NYSTATIN-TRIAMC15 GM TOP (12:34)
[2018-10-03] MEDS ORDERED: MIDODRINE HCL 55 M1 PO (12:34)
[2018-10-03] MEDS ORDERED: LEVAQUIN 500 M500 M2 PO (12:34)
--- NOTE | 2018-10-03 14:11 | NUR ---
DISCHARGE NOTE: ANTONELLA reviewed chart and spoke with nursing and attending physician. Pt is medically stable for discharge to 5N today. ANTONELLA met with pt at bedside to provide update and discuss discharge to 5[facility]. Pt is aware and in agreement with discharge plan. Eventual plan is for pt to discharge home and resume her outpatient dialysis at [facility]. Rehab CM to follow and assist as needed with discharge planning.
[2018-10-03 16:35] VITALS: BP 95/53
== END 2018-10-03 17:20 | DRG 270 ==
LOC: ER 08:01 → EROBS 09:16 → ICU 09:16 → 3W 09-30 18:13
PROVIDERS: Emergency Medicine; Hospitalist; Internal Medicine Nephrology; Nurse Practitioner Acute Care; ADMIT Internal Medicine
PROC: B5181ZA Fluoroscopy of Superior Vena Cava using Low Osmolar Contrast, Guidance (ICD-10-PCS; 2018-09-25)
PROC: B548ZZA Ultrasonography of Superior Vena Cava, Guidance (ICD-10-PCS; 2018-09-25)
PROC: 02HV33Z Insertion of Infusion Device into Superior Vena Cava, Percutaneous Approach (ICD-10-PCS; 2018-09-25)
PROC: 5A1D70Z Performance of Urinary Filtration, Intermittent, Less than 6 Hours Per Day (ICD-10-PCS; principal; 2018-09-27)
PROC: 5A1D70Z Performance of Urinary Filtration, Intermittent, Less than 6 Hours Per Day (ICD-10-PCS; 2018-09-28)
PROC: 5A1D70Z Performance of Urinary Filtration, Intermittent, Less than 6 Hours Per Day (ICD-10-PCS; 2018-09-30)
PROC: 5A1D70Z Performance of Urinary Filtration, Intermittent, Less than 6 Hours Per Day (ICD-10-PCS; 2018-10-01)
PROC: 5A1D70Z Performance of Urinary Filtration, Intermittent, Less than 6 Hours Per Day (ICD-10-PCS; 2018-10-02)
PROC: 047Q34Z Dilation of Left Anterior Tibial Artery with Drug-eluting Intraluminal Device, Percutaneous Approach (ICD-10-PCS; 2018-10-02)
PROC: 04CL3ZZ Extirpation of Matter from Left Femoral Artery, Percutaneous Approach (ICD-10-PCS; 2018-10-02)
PROC: B4101ZZ Fluoroscopy of Abdominal Aorta using Low Osmolar Contrast (ICD-10-PCS; 2018-10-02)
PROC: 04CQ3ZZ Extirpation of Matter from Left Anterior Tibial Artery, Percutaneous Approach (ICD-10-PCS; 2018-10-02)
PROC: 047U34Z Dilation of Left Peroneal Artery with Drug-eluting Intraluminal Device, Percutaneous Approach (ICD-10-PCS; 2018-10-02)
PROC: B4181ZZ Fluoroscopy of Bilateral Renal Arteries using Low Osmolar Contrast (ICD-10-PCS; 2018-10-02)
PROC: 047L3DZ Dilation of Left Femoral Artery with Intraluminal Device, Percutaneous Approach (ICD-10-PCS; 2018-10-02)
DX: I95.9 Hypotension, unspecified (principal); R57.1 Hypovolemic shock; N18.6 End stage renal disease; J18.9 Pneumonia, unspecified organism; E27.40 Unspecified adrenocortical insufficiency; L97.929 Non-pressure chronic ulcer of unspecified part of left lower leg with unspecified severity; Z68.41 Body mass index [BMI] 40.0-44.9, adult; I12.0 Hypertensive chronic kidney disease with stage 5 chronic kidney disease or end stage renal disease; E78.00 Pure hypercholesterolemia, unspecified; M19.91 Primary osteoarthritis, unspecified site; E80.6 Other disorders of bilirubin metabolism; E83.51 Hypocalcemia; D72.829 Elevated white blood cell count, unspecified; I25.10 Atherosclerotic heart disease of native coronary artery without angina pectoris; I49.5 Sick sinus syndrome; I48.91 Unspecified atrial fibrillation; E78.5 Hyperlipidemia, unspecified; I87.2 Venous insufficiency (chronic) (peripheral); L25.8 Unspecified contact dermatitis due to other agents; B37.2 Candidiasis of skin and nail; E03.9 Hypothyroidism, unspecified; E66.9 Obesity, unspecified; I73.9 Peripheral vascular disease, unspecified; E07.9 Disorder of thyroid, unspecified; L97.529 Non-pressure chronic ulcer of other part of left foot with unspecified severity; Z88.6 Allergy status to analgesic agent; Z88.0 Allergy status to penicillin; Z88.8 Allergy status to other drugs, medicaments and biological substances; Z87.891 Personal history of nicotine dependence; Z90.49 Acquired absence of other specified parts of digestive tract; Z90.710 Acquired absence of both cervix and uterus; Z95.0 Presence of cardiac pacemaker; Z87.81 Personal history of (healed) traumatic fracture; Z79.82 Long term (current) use of aspirin; Z79.899 Other long term (current) drug therapy
CPT/HCPCS: 10078; 10779; 10879; 32100

== ENCOUNTER 2018-10-01 14:22 | Inpatient (IN) | payer OTHER ==
[~2018-10-01] VITALS: Ht 160 cm; Wt 106.4 kg
--- NOTE | ~2018-10-01 | PLAN ---
[facility] [place] [address] REHAB UNIT PLAN OF CARE Name: GINA HUGHES Room #: 505-P ADM IN M.R.#: [id number] Admission: 10/03/18 ������������������ Attend Phys: Rachid Galvan MD Discharge: ������������������ Date of : 46 Report #: [id number] THIS REPORT FOR: //name// CC: Rachid Martihsan Hyatt DATE OF SERVICE: 10/05/2018 PROGRESS NOTE AND OVERALL PLAN OF CARE: SUBJECTIVE: The patient is seen back earlier. She was in no distress. Last recorded temperature is 36.6, pulse is 87, respirations 16, and blood pressure is 83/49. She has been pleasant. She has been working in therapies with transfers min assist, gait min assist 35 feet front-wheeled walker. In occupational therapy, she has decreased endurance as far as her ADLs. Bed mobility is mod assist, stand pivot transfers are min assist, grooming is supervision. ASSESSMENT: A 73-year-old white female with the following problem list: 1. Critical illness myopathy. 2. Shock with multifactorial hypotension. 3. Left superficial femoral artery stenosis, status post arthrectomy with stenting. 4. End-stage renal disease, on hemodialysis. 5. Hypothyroidism with TSH elevated. 6. History of hypertension. 7. Hyperlipidemia. 8. Morbid obesity with Faustina pannus infection. 9. History of cardiac ablation secondary to atrial fibrillation. 10. Bilateral infiltrates. PLAN: The overall plan of care is based on the preadmission screen, post-admission physician evaluation, and information garnered from therapy assessments. 1. Estimated length of stay is probably at least 7-14 days pending progress. 2. Medical prognosis is reasonably good. 3. Anticipated interventions includes the interdisciplinary acute inpatient rehabilitation program with goal of maximizing her functional independence, so she can hopefully return back to her prior living situation. 4. Anticipated functional outcomes would be for the patient to become modified independent with mobility, transfers, and ADLs at the walker level. 5. Discharge destination would be back to the home setting where she lives with her in a house. 6. Expected therapy by discipline includes PT and OT 1-1/2 hours per day each five days a week throughout the duration of the acute inpatient rehabilitation [address] [address] REHAB UNIT PLAN OF CARE Name: GINA HUGHES Room #: 505-P [facility] IN [facility].#: [id number] Admission: 10/03/18 ������������������ Attend Phys: Rachid Galvan MD Discharge: ������������������ Date of : 46 Report #: [id number] stay. ADDENDUM The discharge destination again is back home with her and their house. Expected therapy by discipline includes PT and OT 1-1/2 hours per day each five days a week throughout the duration of the acute inpatient rehabilitation stay. ��������������������������������������������� ���������������������������������������� By: ��������������������������������������������� [facility] 2241 Rachid Galvan MD /PMT
--- NOTE | ~2018-10-01 | H ---
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 She was admitted originally to [facility], 09/25/2018 with worsening blood pressure and noted to have shock, likely multifactorial with severe hypotension. She was treated in the intensive care unit, placed on pressors, midodrine. She has a nonhealing left foot ulcer, also was noted to have bilateral infiltrates and a Faustina pannus infection. Nephrology was closely involved along with multiple medical consultants and Infectious Disease. She also had hypothyroidism with TSH elevated for which she was on Synthroid. She was noted to have significant weakness with her intensive care unit stay and ongoing shock and blood pressure issues and is felt to have a critical illness myopathy. She has significant mobility and ADL deficits and has not been admitted for acute in-hospital inpatient rehabilitation. PAST MEDICAL HISTORY: Includes cardiac ablation in 2002 secondary to atrial fibrillation. She has a chronic left calf wound. She has significant obesity, degenerative arthritis, prior history of a pelvic fracture. MEDICATIONS: Please see the full medication listing. This includes vitamins, herbals, and supplements. SOCIAL HISTORY: She lives in a house with her . Premorbid cane ambulator for the last couple of years. There is one step into the house. 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 She does some driving. Her is retired, does the laundry, etc., but could be of assistance. She has a daughter in [place]. REVIEW OF SYSTEMS: No current complaints of chest pain, shortness of breath, abdominal discomfort. Denies any distal numbness or tingling. Denies any history of neuropathy. No bowel or bladder changes. No headache. No recent fever or chills. PHYSICAL EXAMINATION: GENERAL: Pleasant, obese 73-year-old white female in no obvious distress. She is 5 feet 3, noted to be 217 pounds, most recent weight. Her highest weight was [facility] [address] [place] [address] HISTORY AND PHYSICAL Name: GINA HUGHES Room #: 505-P [facility] IN M.R.#: [id number] Admission: 10/03/18 ������������������ Attend Phys: Rachid Galvan MD Discharge: ������������������ Date of : 46 Report #: [id number] 245.8 pounds. VITAL SIGNS: Last recorded temperature 97.1, pulse 94, respirations 18, blood pressure 86/53. The patient is alert. HEENT: Appeared to be benign. Cranial nerves are grossly intact. Facies are symmetric. CHEST: Sounded clear to auscultation. CARDIOVASCULAR: Regular rate and rhythm. ABDOMEN: Noted to be morbidly obese, bowel sounds are positive. EXTREMITIES: She does have a dressing underneath her pannus. She has functional range of motion of both upper extremities. Strength is grade 4-/5. DTRs are trace to 1. Lower extremities functional range of motion, strength is grade 4-/5. DTRs are trace to 1. She does have some chronic venous stasis changes. She has the venous ulcer, left leg that appears improved. Of note is the fact that she had left superficial femoral artery stenosis treated with arthrectomy and MACHINE SIZER on 10/02/2018, drug-eluting stent placed. To continue on aspirin and Plavix. Functionally, she has been mod assist with sit to stand with gait, mod assist short distances with a front-wheeled walker. ASSESSMENT: A 73-year-old white female with the following problem list: 1. Critical illness myopathy. 2. Shock with multifactorial hypotension. 3. Intensive care unit stay. 4. Left superficial femoral artery stenosis, status post arthrectomy with stent. To continue aspirin and Plavix and to have followup, 12/31/2018. 5. End-stage renal disease, on hemodialysis. 6. Hypothyroidism with TSH elevated. 7. History of hypertension. 8. Hyperlipidemia. 9. Candidal pannus infection. 10. History of cardiac ablation secondary to atrial fibrillation. 11. Bilateral infiltrates. PLAN: The patient is admitted for acute in-hospital inpatient rehabilitation. From a postadmission physician evaluation perspective, there are no relevant changes since the preadmission screening. Please see the above review of prior and current medical and functional conditions and comorbidities. Please see the patient's previous and current functional status. As far as risk of complication, she has multiple medical comorbidities as noted above. Initial plan of care involves the interdisciplinary acute inpatient rehabilitation program with goal of maximizing the patient's functional independence, so she can hopefully return back to her prior living situation. Measurable functional goals would be for the patient to become modified independent with transfers, mobility, ADLs, so she can hopefully return back to her prior living situation. Prognosis is reasonably good with estimated length of stay probably at least 7-14 days pending progress. Potential barriers would include her multiple medical comorbidities and decreased functional status. [facility] [address] [place] [address] HISTORY AND PHYSICAL Name: GINA HUGHES Room #: 505-P ADM IN M.R.#: [id number] Admission: 10/03/18 ������������������ Attend Phys: Rachid Galvan MD Discharge: ������������������ Date of : 46 Report #: [id number] The patient meets diagnostic criteria for an acute in-hospital inpatient rehabilitation stay. She meets the medical necessity criteria and we will have the multiple solutions consultant physicians continue to follow. She does have the tolerance for therapies and has appropriate discharge goals back to the home setting. ��������������������������������������������� ���������������������������������������� By: ��������������������������������������������� [id number] Rachid Galvan MD /PMT
[~2018-10-01 14:22] MED LIST changes: +GABAPENTIN 100100 MG PO
[2018-10-03] MEDS ORDERED: LEVAQUIN 500 M500 M2 PO (12:34)
[2018-10-03] MEDS ORDERED: MIDODRINE HCL 55 M1 PO (12:34)
[2018-10-03] MEDS ORDERED: PLAVIX 75 MG TA75 M1 PO (12:34)
[2018-10-03] MEDS ORDERED: NYSTATIN-TRIAMC15 GM TOP (12:34)
[2018-10-03 19:02] VITALS: BP 89/52
[2018-10-03 21:04] VITALS: BP 84/47
[2018-10-04 04:15] VITALS: BP 86/53
[2018-10-04 05:26] LABS: HEMOGLOBIN 12.5 gm/dL (12.0-15.0); MCH 29.3 pg (26.0-34.0); MCHC 31.9 g/dL (28.0-37.0); MCV 91.8 fL (80.0-100.0); RBC 4.25 mil/uL (4.20-5.00); RDW 19.2 % (10.5-14.5); WBC 9.3 thou/uL (4.0-11.0)
[2018-10-04 05:36] LABS: CALCIUM 8.8 mg/dL (8.5-10.1); CREATININE 5.1 mg/dL (0.6-1.0); POTASSIUM 5.2 mmol/L (3.5-5.1)
[2018-10-04 08:09] VITALS: BP 77/49
[2018-10-04 20:22] VITALS: BP 102/46
[2018-10-04 20:49] VITALS: BP 112/56
[2018-10-05 05:40] VITALS: BP 99/45
[2018-10-05 08:45] VITALS: BP 87/47
[2018-10-05 09:52] VITALS: BP 83/49
[2018-10-05 19:30] VITALS: BP 90/49
[2018-10-06 09:08] VITALS: BP 70/45
[2018-10-06 10:22] VITALS: BP 68/40
[2018-10-06 12:18] VITALS: BP 102/75
[2018-10-06 16:52] VITALS: BP 84/49
[2018-10-06 19:40] VITALS: BP 78/47
[2018-10-07 05:23] VITALS: BP 77/43
[2018-10-07 08:00] VITALS: BP 81/49
[2018-10-07 19:20] VITALS: BP 95/46
[2018-10-08 06:21] LABS: HEMOGLOBIN 11.8 gm/dL (12.0-15.0); MCH 29.2 pg (26.0-34.0); MCHC 31.9 g/dL (28.0-37.0); MCV 91.7 fL (80.0-100.0); PLATELET COUNT 144 thou/uL (150-400); RBC 4.03 mil/uL (4.20-5.00); RDW 19.4 % (10.5-14.5); WBC 8.4 thou/uL (4.0-11.0)
[2018-10-08 06:47] LABS: ALBUMIN 2.9 g/dL (3.4-5.0); CALCIUM 8.7 mg/dL (8.5-10.1); MAGNESIUM 1.8 mg/dL (1.8-2.4); PHOSPHORUS 3.8 mg/dL (2.5-4.9)
[2018-10-08 07:39] LABS: ANISOCYTOSIS 2+
[2018-10-08 08:16] VITALS: BP 73/47
[2018-10-08 19:45] VITALS: BP 82/43
[2018-10-09 06:39] VITALS: BP 65/41
[2018-10-09 08:41] VITALS: BP 69/44
[2018-10-09 12:33] VITALS: BP 70/44
[2018-10-09 19:30] VITALS: BP 82/45
[2018-10-10 08:00] VITALS: BP 76/44
[2018-10-10 21:10] VITALS: BP 75/37
[2018-10-11 07:29] VITALS: BP 88/48
[2018-10-11 08:10] VITALS: BP 88/48
[2018-10-11 08:25] LABS: ABSOLUTE NEUTROPHILS 7.2 thou/uL (1.4-8.2); EOSINOPHILS 3.5 % (0.0-3.0); HEMATOCRIT 36.5 % (37.0-47.0); HEMOGLOBIN 11.6 gm/dL (12.0-15.0); LYMPHOCYTES 10.1 % (24.0-44.0); MCH 29.4 pg (26.0-34.0); MCHC 31.7 g/dL (28.0-37.0); MCV 92.6 fL (80.0-100.0); PLATELET COUNT 154 thou/uL (150-400); POLYS 75.4 % (36.0-66.0); RBC 3.94 mil/uL (4.20-5.00); RDW 19.1 % (10.5-14.5); WBC 9.6 thou/uL (4.0-11.0)
[2018-10-11 08:41] LABS: CALCIUM 9.3 mg/dL (8.5-10.1); CREATININE 3.2 mg/dL (0.6-1.0); MAGNESIUM 2.2 mg/dL (1.8-2.4); POTASSIUM 4.5 mmol/L (3.5-5.1)
--- NOTE | 2018-10-11 11:56 | 2DMMODE ---
Formerly [facility] [place] [address] 2 D/M-MODE ECHOCARDIOGRAM Name: GINA HUGHES Room #: 510-P [facility] IN M.R.#: [id number] ������������� Admission: 10/03/18 ������������� Attend Phys: Rachid Galvan, Discharge: ��� 10/11/18 ������������� ��� Date of : 47 Date of Service: 10/11/18 1156 �� Report #: [id number] �������� ��������������������������������������������[id number] THIS REPORT FOR: //name// APPROVED REPORT Study performed: 10/11/2018 11:15:41 EXAM: Limited 2D, Doppler, and color-flow Echocardiogram Patient Location: ICU Room #: 240 Status: routine BSA: 2.07 HR: 68 bpm BP: 88/48 mmHg Rhythm: Irregular Other Information Study Quality: Adequate Technically limited study due to morbid obesity and limited mobility. Indications Abbreviated echo for hypotension. Rule out pericardial effusion. (Complete echo done 09/25/18) Hx: Afib, ablation, pacemaker, HTN, HLP. Tricuspid Valve TR Peak Alexis.: 2.03 m/s RAP Estimate: 15.00 mmHg TR Peak Gr.: 16.56 mmHg PA Pressure: 32.00 mmHg Left Ventricle The left ventricle is normal size. Left ventricular systolic function is normal. LVEF is 55%. Right Ventricle Right ventricle is dilated. Right ventricle is hypokinetic. Pacemaker lead is present in the right ventricle. Atria Left atrium is dilated. Right atrium is dilated. Aortic Valve Aortic valve is calcified. Mitral Valve Formerly [facility] [address] [place] [address] 2 D/M-MODE ECHOCARDIOGRAM Name: GINA HUGHES Room #: 510-P [facility] IN M.R.#: [id number] ������������� Admission: 10/03/18 ������������� Attend Phys: Rachid Galvan, Discharge: ��� 10/11/18 ������������� ��� Date of : 47 Date of Service: 10/11/18 1156 �� Report #: [id number] �������� ��������������������������������������������[id number] The mitral valve is normal in structure. Tricuspid Valve The tricuspid valve is normal in structure. Severe tricuspid regurgitation. Estimated PAP is 30-35mmHg. Pericardium There is no pericardial effusion. <Conclusion> The left ventricle is normal size. Left ventricular systolic function is normal. Right ventricle is dilated. Right ventricle is hypokinetic. Pacemaker lead is present in the right ventricle. Left atrium is dilated. Right atrium is dilated. Aortic valve is calcified. The mitral valve is normal in structure. Severe tricuspid regurgitation. Estimated PAP is 30-35mmHg. There is no pericardial effusion. ��������������������������������������������� <ELECTRONICALLY SIGNED> ���������������������������������������� By: Marek Root MD ��������������������������������������������� 10/11/18 1156 1156 1156 Marek Root MD /INF
--- NOTE | 2018-10-13 14:40 | HC ---
[facility] [place] [address] CONSULTATION Name: GINA HUGHES Room #: 510-P [facility] IN M.R.#: [id number] Admission: 10/03/18 ������������������ Attend Phys: Rachid Galvan MD Discharge: 10/11/18 ������������������ Date of : 47 Report #: [id number] THIS REPORT FOR: //name// CC: Rachid Kebede Ceferino Hyatt DATE OF SERVICE: 10/06/2018 NEUROBEHAVIORAL STATUS EXAM. ATTENDING PHYSICIAN: Rachid Galvan MD. BULLDOGGER: Aron Magaña, PhD. CLINICAL PRESENTATION: The patient is a 73-year-old white female, admitted to the rehabilitation unit at [facility] with end-stage renal disease. She has been on hemodialysis and having difficulty with management of blood pressure. Severe hypotension was diagnosed. The patient's assessment on admission to the rehabilitation unit is a critical illness myopathy; shock with multifactorial hypotension; intensive care stay; left superficial femoral artery stenosis; status post atherectomy with stent; end-stage renal disease on hemodialysis; hypothyroidism with TSH elevation; history of hypertension; hyperlipidemia; Faustina pannus infection; history of cardiac ablation secondary to atrial fibrillation and bilateral infiltrates. A complete description of her medical condition and history along with medications can be found in her medical record. Neuropsychological consultation was requested to provide assistance in the assessment of cognitive and emotional status and to provide recommendations and services. Prior to this most recent admission, she was living independently at her home with her . 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 She had 5 children. Two children are from cancer. One child in 2011 and the other in 2014. Her utilizes a 4-wheel walker. She does not report a prior history of treatment for depression or anxiety. TECHNIQUES UTILIZED: Clinical interview, review of medical records, staff consultation and behavioral observation, mini mental status exam 2 standard version, clock drawing, verbal fluency assessment EXAMINATION FINDINGS: The patient was alert and cooperative with the assessment. She accurately described the reason for her hospitalization. She reports that she had low blood pressure. Her current symptoms primarily are tiredness and fatigue. Decreased appetite and poor sleep are also noted. She [facility] [address] [place] [address] CONSULTATION Name: GINA HUGHES Room #: 510-P [facility] IN M.R.#: [id number] Admission: 10/03/18 ������������������ Attend Phys: Rachid Galvan MD Discharge: 10/11/18 ������������������ Date of : 47 Report #: [id number] does not report anxiety or depression. However, she does indicate feeling frustrated with the extent of her fatigue and the difficulty with low blood pressure. Performance on the MMSE 2 brief version is within normal limits with a raw score 16 of 16. Performance on the MMSE 2 standard version is within normal limits with a raw score 26 of 30 and a T score of 46. She was 2/5 for serial sevens and extended effort improved in regard to concentration was noted. She also was unable to accurately copy a simple geometric design. Clock drawing was within normal limits. Performance in verbal fluency assessment extremely low. Letter fluency was less than 1% with a T score of 20. Category fluency was at the 1st percentile with a T score of 27. Overall, total verbal fluency was a T score of 28th percentile, rank of less than 1. The patient is alert and oriented. Deficits in verbal fluency suggests diminished thought organization. Additionally, the extent of effort on serial sevens suggesting impairment in concentration and deficits in visual spatial construction. 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 RECOMMENDATIONS: The patient will likely require increased assistance with instrumental activities of daily living upon discharge. Deficits in cognitive functioning suggest further neuropsychological testing to clarify the degree of severity. Speech therapy may be helpful for assistance in planning, organization and problem solving. Thank you very much for allowing me to provide the consultation on this patient. ��������������������������������������������� <ELECTRONICALLY SIGNED> ���������������������������������������� By: Aron Magaña, PhD ��������������������������������������������� 10/13/18 1440 1635 0907 Aron Magaña, PhD /nt
--- NOTE | 2018-10-13 22:28 | EKG ---
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 : 1945 Requested By: Ema August Order Number: [id number] : Sixto Edwards Measurements Intervals [place] Rate: 79 P: [place]: QRS: 130 QRSD: 181 T: 154 QT: 480 QTc: 551 Interpretive Statements Atrial fibrillation RBBB and LPFB Abnormal T, consider ischemia, lateral leads Compared to ECG 09/25/2018 08:43:06 No significant changes Electronically Signed On 10-13-2018 22:28:21 CDT by Sixto Edwards [email or web address] ��������������������������������������������� <ELECTRONICALLY SIGNED> ���������������������������������������� By: Sixto Edwards MD ��������������������������������������������� 10/13/18 2228 0744 0744 Sixto Edwards MD /EPI
== END 2018-10-11 10:43 | disposition short-term general hospital (02) | DRG 91 ==
PROVIDERS: Nurse Practitioner; Nurse Practitioner Family; ADMIT Physical Medicine & Rehabilitation
PROC: 5A1D70Z Performance of Urinary Filtration, Intermittent, Less than 6 Hours Per Day (ICD-10-PCS; principal; 2018-10-05)
PROC: 5A1D70Z Performance of Urinary Filtration, Intermittent, Less than 6 Hours Per Day (ICD-10-PCS; 2018-10-08)
PROC: 5A1D70Z Performance of Urinary Filtration, Intermittent, Less than 6 Hours Per Day (ICD-10-PCS; 2018-10-10)
DX: G72.81 Critical illness myopathy (principal); N18.6 End stage renal disease; J18.9 Pneumonia, unspecified organism; R57.9 Shock, unspecified; I12.0 Hypertensive chronic kidney disease with stage 5 chronic kidney disease or end stage renal disease; E87.1 Hypo-osmolality and hyponatremia; Z68.41 Body mass index [BMI] 40.0-44.9, adult; E03.9 Hypothyroidism, unspecified; E78.5 Hyperlipidemia, unspecified; E66.01 Morbid (severe) obesity due to excess calories; I48.91 Unspecified atrial fibrillation; R41.9 Unspecified symptoms and signs involving cognitive functions and awareness; M19.90 Unspecified osteoarthritis, unspecified site; H16.429 Pannus (corneal), unspecified eye; R53.81 Other malaise; E87.8 Other disorders of electrolyte and fluid balance, not elsewhere classified; I73.9 Peripheral vascular disease, unspecified; E87.5 Hyperkalemia; I87.2 Venous insufficiency (chronic) (peripheral); L30.8 Other specified dermatitis; G47.00 Insomnia, unspecified; K59.00 Constipation, unspecified; Z95.0 Presence of cardiac pacemaker; Z99.2 Dependence on renal dialysis
CPT/HCPCS: 10112; 32100

== ENCOUNTER 2018-10-11 11:30 | Inpatient (IN) | payer OTHER ==
[2018-10-11] VITALS (30 sets, daily range): BP systolic 69–98; BP diastolic 34–64
[~2018-10-11] VITALS: Ht 165.1 cm; Wt 104.2 kg
[~2018-10-11 11:30] MED LIST changes: +LEVAQUIN 500 M500 M2 PO; +MIDODRINE HCL 55 M1 PO; +NYSTATIN-TRIAMC15 GM TOP; +PLAVIX 75 MG TA75 M1 PO
--- NOTE | 2018-10-11 16:00 | NUR ---
DAVIAN CARE PROVIDED, NEW INTERDRY PLACED IN LESLIE GROIN AND BETWEEN UPPER THIGHS AT DAVIAN-AREA.
--- NOTE | 2018-10-11 19:58 | NUR ---
REPORT RECEIVED FROM TERI ROSE. PT RECEIVED IN ICU # [id number] FROM REHAB WITH DX: BRADYCARDIA AND HYPOTENSION. PT DENIES ANY SYMPTOMS. PACER INTERROGATED BY CARDIOLOGY NURSE PRACTITIONER. DR. ZAZUETA PRESENT, THEN ORDERS WRITTEN BY [facility] MANUFACTURING ANALYST. NS 500CC INFUSED OVER SEVERAL HOURS, THEN MIDODRINE GIVEN PER ORDER. PT REMAINED ALERT, CALM, COOPERATIVE, DENIES ANY SYMPTOMS. SPOUSE AT BEDSIDE, UPDATED ON PLAN OF CARE.
[2018-10-12] VITALS (39 sets, daily range): BP systolic 70–98; BP diastolic 40–61
--- NOTE | 2018-10-12 06:12 | NUR ---
AOX4. MEDICATED FOR PAIN RELIEF. BP ON THE 80S TO 90S, DR. TAVAREZ AND CIGAR PATCHER CHAZ AWARE. AFEBRILE. LEFT LOWER LEG WOUND DRESSIN CHANGE. UP TO BATHROOM WITH WALKER AND MINIMAL ASSISTANCE FROM NURSE. NO COMPLAINS PRESENTLY. WILL CONTINUE TO MONITOR.
[2018-10-12 07:19] LABS: HEMATOCRIT 34.6 % (37.0-47.0); HEMOGLOBIN 10.9 gm/dL (12.0-15.0); MCH 29.3 pg (26.0-34.0); MCHC 31.5 g/dL (28.0-37.0); MCV 92.9 fL (80.0-100.0); RBC 3.72 mil/uL (4.20-5.00); RDW 19.6 % (10.5-14.5); WBC 8.5 thou/uL (4.0-11.0)
[2018-10-12 07:27] LABS: CREATININE 4.1 mg/dL (0.6-1.0); POTASSIUM 4.6 mmol/L (3.5-5.1)
--- NOTE | 2018-10-12 09:20 | NUR ---
CALM, CHRONIC HIP DISCOMFORT- TYLENOL GIVEN. BREAKFAST HELD SINCE DIALYSIS STARTING NOW. AFIB WITH VENT PACING, 2L/NC, RESP EVEN AND UNLABORED, VOIDED SCANT AMOUNT URINE. DIALYSIS IN PROGRESS.
--- NOTE | 2018-10-12 15:15 | NUR ---
REPORT CALLED TO TERI MIRAMONTES. CALLED SPOUSE TO NOTIFY HIM OF PT TRANSFER TO [facility] RM #[id number].
--- NOTE | 2018-10-12 15:55 | NUR ---
TRANSFERRED BY BED TO RM # [id number].
--- NOTE | 2018-10-12 17:26 | NUR ---
ASsumed care of Pt on arrival to unit at approx 1630. Pt AOX4 in mod distress from pain to back and legs. physician notified about resuming home pain meds - waiting for call back. LLE wound dressed. up to BSC w/ 1 assist. breathing comfortably on 1L NC. sitting in chair currently. afib w/ vent pacing on telemetry. blood pressures improved. will cont to monitor.
[2018-10-13] VITALS (7 sets, daily range): BP systolic 74–86; BP diastolic 41–54
--- NOTE | 2018-10-13 07:31 | NUR ---
PATIENT IS PROGRESSING SLOWLY IN HER CARE PLAN. VITAL SIGNS MOSTLY STABLE WITH LOW BLOOD PRESSURE BEING CHIEF CONCERN. PATIENT DID COMPLAIN OF PAIN IN LOWER LEG WHICH WAS MANAGED EFFECTIVELY THROUGH MEDICATION. BREATHING STABLE ON OXYGEN EVIDENCED BY SPOT OXYGENATION CHECKS. PATIENT WAS ABLE TO TRANSFER WITH ASSISTANCE INCIDENT FREE. CONTINUE PLAN OF CARE.
--- NOTE | 2018-10-13 16:30 | NUR ---
PATIENT HAS BEEN QUITE SLEEPY ALL DAY. SHE STATES SHE DID NOT SLEEP WELL AT NIGHT. DENIES PAIN AT THIS TIME. RESPIRATIONS ARE NON LABORED. WILL BE HAVING DIALYSIS TOMORROW. WILL CONT WITH PLAN OF CARE.
[2018-10-14] VITALS (7 sets, daily range): BP systolic 72–100; BP diastolic 48–54
--- NOTE | 2018-10-14 03:55 | NUR ---
PATIENT IS PROGRESSING SLOWLY IN HER CARE PLAN. VITAL SIGNS MOSTLY STABLE WITH NURSE CLOSELY MONITORING PATIENTS HYPOTENSIVE BLOOD PRESSURE. PATIENT HAD NO COMPLAINTS OF NAUSEA, BUT HAD FREQUENT COMPLAINTS OF PAIN IN LEFT LOWER EXTREMITY WHICH NURSE WORKED HARD TO TREAT WITH PATIENTS LOW BLOOD PRESSURE IN MIND. SHE IS SCHEDULED FOR DIALYSIS TODAY. WOUND DRESSING REMAINS CLEAN DRY AND INTACT. PATIENT WAS ABLE TO TRANSFER FROM BED TO RECLINER WITH ASSISTANCE INCIDENT FREE. CONTINUE PLAN OF CARE.
--- NOTE | 2018-10-14 09:40 | NUR ---
Nutrition: pt admit with bradycardia, chronic hypotension. Chronic dialysis pt. Seen due to consult for poor intake. Pt reports intake about 50% of usual x 1 month however weights reportedly stable within a range. May see change with dialysis, DUF today. Obtained food preferences and assisted with ordering meals. Likes Nepro and will drink 100% daily, send at lunch. Would do well with assistance in ordering meals. Consider low risk-interventions in place.
--- NOTE | 2018-10-14 14:10 | NUR ---
PT REPORTS PAIN TO LLE AND MEDICATED WITH ULTRAM WITH FAIRLY GOOD RESULTS..
--- NOTE | 2018-10-14 16:26 | NUR ---
ASSESSMENT: CM REVIEWED CHART AND MET WITH PATIENT AT THE [facility]. PT WAS ADMITTED FOR BRADYCARDIA. PT WAS RECENTLY ON 5N ACUTE REHAB AND WAS SENT TO THE ICU AND NOW ON 3W. PT PLANS ON RETURNIN TO 5N ONCE MEDICALLY STABLE SHE REPORTS. IS FOLLOWING PATIENT AND WILL EVAL TO SEE IF THEY CAN ACCEPT PATIENT BACK. PT LIVES AT HOME WITH HER . PT REPORTS THAT [facility] AND DRIVES THERE HERSELF. PT REPORTS SHE STILL WORKS AT [employer]. PT IS HOPEFUL TO RETURN TO 5N, CM WAITING ON FURTHER INPUT FROM AT THIS TIME. CM WILL CONTINUE TO FOLLOW TO ASSIST NEEDED.
--- NOTE | 2018-10-14 17:16 | NUR ---
WOUND CARE FOLLOW UP; ROUNDING WITH DR TANIA JORDAN AND ABHILASH POPE RN. TENDER WOUND BED, YELLOW FIBRNOUS TISSUE 100% RECOMMENDATIONS CONTINUE CURRENT DRESSING FOR NOW. MISONICS DEBRIDEMENT IS JUNIOR, SURGERY CONSULTED. DISCUSSED WITH TERI
[2018-10-15 04:13] VITALS: BP 93/57
--- NOTE | 2018-10-15 04:33 | NUR ---
Patient making slow progress towards outcome goals. SBP 90's. Aware of planned debridment of wound and dialysis. Timing to be determined. Good pain control with Tramadol. NPO after MN for surgery. Surgery consent signed by patient and expressed understanding.
[2018-10-15 05:48] LABS: ALBUMIN 3.5 g/dL (3.4-5.0); CALCIUM 8.8 mg/dL (8.5-10.1); PHOSPHORUS 3.7 mg/dL (2.5-4.9); POTASSIUM 5.1 mmol/L (3.5-5.1)
--- NOTE | 2018-10-15 12:10 | NUR ---
patient finished hd. bp 108/51. stephen to or to have I @ D.
[2018-10-15 14:06] LABS: HEPATITIS B SURFACE AG Negative (Negative)
--- NOTE | 2018-10-15 14:22 | O ---
[place] [address] OPERATIVE REPORT Name: GINA HUGHES Room #: 353-P ADM IN M.R.#: [id number] Admission: 10/11/18 ������������������ Attend Phys: Guanaco Holm MD Discharge: ������������������ Date of : 46 Report #: [id number] THIS REPORT FOR: //name// CC: Guanaco Leeore Hyatt DATE OF SERVICE: 10/15/2018 PREOPERATIVE DIAGNOSES: 1. Bilateral lower extremity venous stasis and suspected arterial insufficiency. 2. Left lower extremity venous stasis nonhealing wounds to the lateral and medial aspect of the left lower leg. POSTOPERATIVE DIAGNOSES: 1. Bilateral lower extremity venous stasis and suspected arterial insufficiency. 2. Left lower extremity venous stasis nonhealing wounds to the lateral and medial aspect of the left lower leg. PROCEDURES PERFORMED: 1. Excisional debridement of the skin, subcutaneous tissue and muscle/fascia of the left lower extremity nonhealing wound on the lateral aspect, ultimately measuring 9 x 4 cm in dimension (36 cm2). Preoperative and postoperative wound measurements did not differ substantially as the overall measurements did not change. 2. Excisional debridement of skin, subcutaneous tissue and muscle/fascia of a left lower extremity medial wound, ultimately measuring 2.5 x 2.5 cm in dimension (6.25 cm2). Preoperative and postoperative wound measurements did not differ as the overall dimensions did not change substantially. 3. Total surface area wounds debrided to muscle/fascia equals 42.25 cm2. SURGEON: Audra Clifton M.D. LOCATOR SPECIALIST: Medical student. ANESTHESIA: General endotracheal anesthesia. ESTIMATED BLOOD LOSS: Minimal (less than 5 mL). COMPLICATIONS: None appreciated. SPECIMENS: None. INDICATIONS: The patient is a 73-year-old female with long-standing end-stage renal disease, on hemodialysis as well as bilateral lower extremity [address] [address] OPERATIVE REPORT Name: SAULGINA DAVIDSON Room #: 353-P [facility] IN [facility].#: [id number] Admission: 10/11/18 ������������������ Attend Phys: Guanaco Holm MD Discharge: ������������������ Date of : 47 Report #: [id number] venous stasis and suspected arterial insufficiency. The patient has developed nonhealing venous stasis ulcerative wounds to the left lower leg, both on the medial and lateral aspect, that show significant fibrinous debris and biofilm and requires debridement today. DESCRIPTION OF PROCEDURE: After explaining the risks, benefits and alternatives of the procedure with the patient in detail in the preoperative holding area and obtaining written consent, the patient was brought to the operating room and placed supine on her hospital bed. After conducting a thorough time-out procedure, verifying correct patient and procedure, the patient was given general endotracheal anesthesia. Once adequate anesthesia was obtained, her left lower leg was circumferentially prepped and draped in the standard surgical sterile fashion. Her right lower extremity SCD was hooked up to pneumatic compression device and she was given a preoperative dose of antibiotics in line with the SCIP protocol. The [employer] ultrasonic debridement tool was now used to debride all nonviable skin, subcutaneous tissue and muscle/fascia from the entirety of both the left lateral and left medial lower leg wounds. This was carried back to healthy vascularized tissue throughout and hemostasis was assured with electrocautery. The wounds were then dressed with Xeroform gauze, Adaptic, 4 x 4s and ABDs with loose circumferential Kerlix wrap. At the end of the procedure, all instruments, needle and sponge counts were correct. The patient tolerated the procedure without incident, was awakened in the operating room and transitioned to the recovery room in stable condition, with no apparent complications. ��������������������������������������������� <ELECTRONICALLY SIGNED> ���������������������������������������� By: Audra Clifton MD, FACS ��������������������������������������������� 10/15/18 1422 1315 1332 Audra Clifton MD, FACS /nt
[2018-10-15 15:12] VITALS: BP 81/50
--- NOTE | 2018-10-15 16:34 | NUR ---
on-going assessment: pt is to have debridement of lle wound today. plans are for patient to likely return to 5n at discharge as long as she is still able to tolerate the therapies. 5n is following. cm will continue to follow to assist as needed.
[2018-10-15 19:20] VITALS: BP 82/53
[2018-10-16 03:22] VITALS: BP 87/45
--- NOTE | 2018-10-16 04:25 | NUR ---
Patient is progressing in her care plan. Vital signs mostly stable with patient remaining hypotensive but within acceptable parameters. Patient has had no complaints of nausea but has been treated effectively for pain in left lower extremity. Patients surgical dressing remains clean dry and intact and has been elevated throughout shift. Patient has been up with max assistance incident free to stand and pivot to recliner. Possible dialysis scheduled for tomorrow. Continue plan of care.
[2018-10-16 07:23] VITALS: BP 91/62
[2018-10-16 11:25] VITALS: BP 91/53
[2018-10-16 15:15] VITALS: BP 83/54
[2018-10-16] MEDS ORDERED: SYNTHROID125 MC1 PO (15:58)
--- NOTE | 2018-10-16 16:07 | NUR ---
ON-GOING ASSESSMENT: CM REVIEWED CHART AND MET WITH PATIENT AT THE BEDSIDE. CM SPOKE WITH [facility] WHO STATES THEY CAN ACCEPT PATIENT FOR ADMISSION TODAY. CM MET WITH PATIENT AND SHE IS AGREEABLE FOR PLAN TO GO TO 5N. PT STATES CM DOES NOT NEED TO NOTIFY FAMILY HER IS ON HIS WAY HERE AND SHE HAS BEEN UPDATING HIM. PLANS TO DISCHARGE TO 5N THIS EVENING.
--- NOTE | 2018-10-16 16:17 | NUR ---
WOUND CARE FOLLOW UP; S/P MISONICS WOUND DEBRIDEMENT YESTERDAY. THE WOUND REMAINS TENDER. 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 CONTINUE CURRENT WOUND CARE VANDANA BETTS DISCUSSED WITH STAFF
--- NOTE | 2018-10-16 16:21 | NUR ---
WOUND CARE FOLLOW UP; PATIENT BEING DISCHARGED TODAY. WOUNDS ARE IMPROVING. CONTINUE CURRENT WOUND CARE ORDERS. DISCUSSED WITH RN
== END 2018-10-16 17:55 | DRG 579 ==
LOC: 3W 11:30 → ICU 11:30 → 3W 10-12 16:18
PROVIDERS: Internal Medicine Nephrology; Nurse Practitioner Acute Care; ADMIT Internal Medicine
PROC: 5A1D70Z Performance of Urinary Filtration, Intermittent, Less than 6 Hours Per Day (ICD-10-PCS; principal; 2018-10-12)
PROC: 5A1D70Z Performance of Urinary Filtration, Intermittent, Less than 6 Hours Per Day (ICD-10-PCS; 2018-10-14)
PROC: 4B02XSZ Measurement of Cardiac Pacemaker, External Approach (ICD-10-PCS; 2018-10-15)
PROC: 5A1D70Z Performance of Urinary Filtration, Intermittent, Less than 6 Hours Per Day (ICD-10-PCS; 2018-10-15)
PROC: 0KBT0ZZ Excision of Left Lower Leg Muscle, Open Approach (ICD-10-PCS; 2018-10-15)
DX: L97.929 Non-pressure chronic ulcer of unspecified part of left lower leg with unspecified severity (principal); N18.6 End stage renal disease; I48.1 Persistent atrial fibrillation; I12.0 Hypertensive chronic kidney disease with stage 5 chronic kidney disease or end stage renal disease; I48.91 Unspecified atrial fibrillation; E03.9 Hypothyroidism, unspecified; I87.2 Venous insufficiency (chronic) (peripheral); Z99.2 Dependence on renal dialysis; E78.5 Hyperlipidemia, unspecified; I25.10 Atherosclerotic heart disease of native coronary artery without angina pectoris; M47.899 Other spondylosis, site unspecified; E11.22 Type 2 diabetes mellitus with diabetic chronic kidney disease; I95.9 Hypotension, unspecified; E11.51 Type 2 diabetes mellitus with diabetic peripheral angiopathy without gangrene; K59.00 Constipation, unspecified; G47.00 Insomnia, unspecified; I49.9 Cardiac arrhythmia, unspecified; B37.2 Candidiasis of skin and nail; M54.9 Dorsalgia, unspecified; Z95.0 Presence of cardiac pacemaker; Z88.0 Allergy status to penicillin; Z88.6 Allergy status to analgesic agent; Z88.8 Allergy status to other drugs, medicaments and biological substances; Z79.899 Other long term (current) drug therapy; Z79.82 Long term (current) use of aspirin; Z87.891 Personal history of nicotine dependence; Z80.8 Family history of malignant neoplasm of other organs or systems; Z90.49 Acquired absence of other specified parts of digestive tract; Z90.710 Acquired absence of both cervix and uterus; Z90.89 Acquired absence of other organs
CPT/HCPCS: 10078; 10879; 32100; 50010; 50101; 50386; 50403; 57119; 57120; 62110; 62900; 70005

== ENCOUNTER 2018-10-16 13:36 | Inpatient (IN) | payer OTHER ==
[~2018-10-16] VITALS: Ht 160 cm; Wt 104.8 kg
--- NOTE | ~2018-10-16 | PLAN ---
[facility] [place] [address] REHAB UNIT PLAN OF CARE Name: GINA HUGHES Room #: 512-P ADM IN M.R.#: [id number] Admission: 10/16/18 ������������������ Attend Phys: Rachid Galvan MD Discharge: ������������������ Date of : 47 Report #: [id number] THIS REPORT FOR: //name// CC: Rcahid Leeramírez Nowakaker DATE OF SERVICE: 10/18/2018 PROGRESS NOTE AND OVERALL PLAN OF CARE SUBJECTIVE: The patient is seen back today in followup. She was in no distress. She sleeps in a recliner. Last recorded temperature 98.9, pulse 65, respirations 18, blood pressure 80/49. She has been working in therapies with transfers, mod assist. Gait was 20 feet min assist with a front-wheeled walker. In occupational therapy, lower body dressing is moderate assistance. In speech therapy, she has mild comprehensive deficits. ASSESSMENT: 1. Critical illness myopathy. 2. Hypotension. 3. End-stage renal disease. 4. Left leg wound, status post debridement. 5. Atrial fibrillation with episodes of bradycardia. 6. Permanent pacemaker has been interrogated. 7. Morbid obesity. PLAN: The overall plan of care is based on the preadmission screen, post-admission physician evaluation and information garnered from therapy assessments. 1. Estimated length of stay is probably 10 days to 2 weeks, potentially longer if warranted. 2. Medical prognosis is reasonably good. 3. Anticipated interventions includes the interdisciplinary acute inpatient rehabilitation program. 4. Anticipated functional outcomes would be for the patient to become modified independent with transfers, mobility and ADLs. 5. Discharge destination would be back to the home setting where she lives with her . 6. Expected therapy by discipline includes PT, OT and speech 1 hour per day each 5 days a week throughout the duration of the acute inpatient rehabilitation stay. ��������������������������������������������� ���������������������������������������� By: ��������������������������������������������� [id number] 0145 Rachid Galvan MD /nt
[2018-10-16] MEDS ORDERED: SYNTHROID125 MC1 PO (15:58)
[2018-10-16 18:00] VITALS: BP 100/58
[2018-10-16 19:26] VITALS: BP 111/61
--- NOTE | 2018-10-17 01:16 | NUR ---
PT ALERT AND ORIENTED X 4. SLEEPS IN RECLINER. FELICE WRAP TO LEFT LEG C/D/I. C/O PAIN IN LEFT LEG. HYDROCODONE GIVEN AT HS AND PT SLEEPING UPON REASSESSMENT. CHAIR ALARM ON FOR SAFETY. PT APPEARS TO BE SLEEPING ON HOURLY ROUNDS.
[2018-10-17 05:37] LABS: HEMATOCRIT 40.5 % (37.0-47.0); HEMOGLOBIN 12.8 gm/dL (12.0-15.0); MCH 29.4 pg (26.0-34.0); MCHC 31.5 g/dL (28.0-37.0); MCV 93.4 fL (80.0-100.0); RBC 4.34 mil/uL (4.20-5.00); RDW 20.3 % (10.5-14.5); WBC 9.7 thou/uL (4.0-11.0)
[2018-10-17 05:41] LABS: CALCIUM 9.2 mg/dL (8.5-10.1); POTASSIUM 4.7 mmol/L (3.5-5.1)
[2018-10-17 08:20] VITALS: BP 96/53
--- NOTE | 2018-10-17 09:50 | NUR ---
chart review, pt back to acute rehab. pt up in room talking with on pc and going to work with ot. "feeling better, remember your face but not name"/daisy. intro to team meetings and dcp. " prior to hospital independent with some help with shoe, work outside home at [employer], have walker and cane. manage own medication, drive vehicle. go to [facility]. 1 step enter home and 15 or 20 with hr to basement and i do not go down there. was cooking before"/daisy. will cont following as needed for dc needs .
--- NOTE | 2018-10-17 21:38 | NUR ---
ASSUMED CARE AT APPROX 0715. PATIENT A/O X4. C/O LLE PAIN, MEDICATED PER ORDERS. DRESSING CHANGED TO LLE. WOUND PHOTOS TAKEN. DIALYZED TODAY. DIALYSIS ACCESS IS LEFT FOREARM FISTULA, [facility] AND THRILL. PATIENT TRANSFERED X1 ASSIST PIVOT TO BED. MEDS GIVEN PER ORDERS. FALL PRECAUTIONS IN PLACE.
[2018-10-18 00:08] VITALS: BP 86/57
--- NOTE | 2018-10-18 02:00 | NUR ---
PAIN PILL GIVEN AT THE END OF DIALYSIS NOT VERY HELPFUL WITH RELIEVING LEG PAIN. DRESSINGS REDONE, THIS TIME WITH GENTAMICIN OINTMENT, LEFT SLAUGHTER FEELS BETTER, BUT THE SMALL MEDIAL WOUND FEELS WORSE. ONE TIME FENTANYL DOSE GIVEN BUT DID NOT WORK QUICKLY IT USUALLY DOES. SLEEPING IN CHAIR
[2018-10-18 05:28] VITALS: BP 81/46
[2018-10-18 07:30] VITALS: BP 80/49
--- NOTE | 2018-10-18 12:24 | NUR ---
Nutrition: pt admitted with critical illness myopathy to rehab unit. Hx ESRD on hemodialysis. PO reportedly down 50% of usual on acute and for one month prior however pt reports it is improving. Eats most of breakfast, less of other meals. Able to order meals. Drinks 100% of nepro daily. LLE nonhealing wound S/P debridement on 10/15. Encouraged protein sources. Stable weights. Consider low nutrition risk at this time.
--- NOTE | 2018-10-18 16:12 | NUR ---
WOUND CARE FOLLOW UP; ROUNDING WITH DR TANIA JORDAN AND ABHILASH RECORD LIBRARIAN. THE LOWER EXT WOUND SHOWS CLINICAL IMPROVEMENT AND IS LESS PAINFUL TODAY. RECOMMENDATIONS; CHANGE TO BECKY WALDEN ABD, KERLIX. DISCUSSED WITH STAFF
--- NOTE | 2018-10-18 16:12 | NUR ---
ASSUMED CARE AT APPROX 0715. PATIENT A/O X4. C/O LLE PAIN 02/04. MEDICATED PER ORDERS. DRESSING CHANGED TO LLE BY WOUND NURSE. REDNESS ON BOTH GROINS. OT GIVEN, INTERDRY APPLIED. BOTTOM WOUND IS GETTING BETTER. ENCOURAGED PT TO SLEEP IN BED AND TURN OFTEN. DIALYSIS ACCESS IS LEFT FOREARM FISTULA, GOOD BRUIT AND THRILL. PATIENT TRANSFERED X1 ASSIST PIVOT TO BED. UP WITH THERAPY. REASSESSMENT PER CHART. REPORTS CONSTIPATION. PT WANTS TO BE ON STOOL SOFTENER DAILY. PT CAN'T HAVE MORE HYDROCODONE FREQUENTLY SINCE PT HAS LOW B/P. CALLED MICHEAL AND OBTAINED ORDER FOR DAILY STOOL SOFTERNER, PRN TYLENOL AND VOLATEREN GEL. OFFERED SUPPORTIVE CARE. MEDS GIVEN PER ORDERS. UP WITH MOD ASSIST. FALL PRECAUTIONS IN PLACE. CALL LIGHT WITHIN REACH. AT BEDSIDE.
[2018-10-18 17:45] VITALS: BP 89/54
[2018-10-18 20:50] VITALS: BP 89/54
--- NOTE | 2018-10-19 03:05 | NUR ---
PATIENT ALERT AND ORIENTED X4. UP WITH ONE ASSIST WITH GAIT BELT AND WALKER. TORNADO WARNING IN EARLY EVENING AND PATIENT WAS ASSISTED TO CENTER OF UNIT IN HER ISABEL CHAIR. C/O PAIN AND GIVEN VICODIN X1 WITH SOME RELIEF, HOWEVER, WAS GIVEN TYLENOL FOR BREAKTHROUGH PAIN X1 AT TIME OF NOTE. FISTULA WITH BRUITT AND THRILL. PATIENT TRANSFERRED TO BED AND STAYED FOR APPROX. 4-5 HOURS. BACK TO ISABEL CHAIR AND CHANGED OUT OF HER CLOTHES IN TO A GOWN. TOLERATED TORNADO WARNING WELL. RESTING QUIETLY AT TIME OF NOTE. WILL MONITOR.
[2018-10-19 06:03] LABS: ALBUMIN 3.5 g/dL (3.4-5.0); CALCIUM 8.8 mg/dL (8.5-10.1); CREATININE 4.5 mg/dL (0.6-1.0); PHOSPHORUS 2.9 mg/dL (2.5-4.9); POTASSIUM 4.7 mmol/L (3.5-5.1)
[2018-10-19 08:55] VITALS: BP 111/51
--- NOTE | 2018-10-19 18:38 | NUR ---
ASSUMED CARE AT APPROX 0715. PATIENT A/O X4. WALKING WITH PT THIS AM, OT GAVE BATH, REDNESS ON GROIN, CREAM APPLIED, INTERDRY FRABIC APPLIED. PINK ON BUTTOCK, BARRIER CREAM APPLIED. C/O ANKLE PAIN,AND BACK PAIN. APPLIED VOLTARENE GEL ON BACK. HYDROCODONE AND TYLENOL GIVEN. DIALYSIS ACCESS IS LEFT FOREARM FISTULA, GOOD BRUIT AND THRILL. PATIENT TRANSFERED X1 ASSIST PIVOT TO BED. OFFERED SUPPORTIVE CARE.MEDS GIVEN PER ORDERS. FALL PRECAUTIONS IN PLACE. CALL LIGHT WITHIN REACH. PT IS AT DIALYSIS AT THIS MOMENT. WILL GIVE REPORT TO NIGHT NURSE TO CONTINUE TO MONITOR.
[2018-10-19 20:22] VITALS: BP 104/57
--- NOTE | 2018-10-20 03:44 | NUR ---
BACK FROM DIALYSIS AT 1910, 2 LITERS REMOVED. DRESSING CHANGE TO LEFT SLAUGHTER WITH MS/SILVADENE, MOISTURE BARRIER TO MID-SACRUM, PATIENT IS SLEEPING IN CHAIR, SOMETIMES ELEVATES LEGS
[2018-10-20 06:22] VITALS: BP 88/48
--- NOTE | 2018-10-20 19:13 | NUR ---
ASSUMED CARE AT APPROX 0715. PATIENT A/O X4. C/O PAIN IN LLE, MEDICATED THIS AM PRIOR TO PT. UP X1 MAX ASSIST GB AND WALKER. TOILETED PER BSC. PARTICIPATED IN THERAPY. DRESSING TO LLE CHANGED PER ORDERS. VOLTAREN GEL APPLIED FOR PAIN. VSS. FALL PRECAUTIONS IN PLACE. ROUNDED ON HOURLY. REPOSITIONED IN CHAIR Q2, PATIENT REFUSING TO TRANSFER TO BED FOR TURNS. RESTING IN RECLINER AT CHANGE OF SHIFT.
[2018-10-20 19:32] VITALS: BP 90/48
--- NOTE | 2018-10-21 02:00 | NUR ---
MEDIUM LARGE FORMED STOOL ON BSC. MIN ASSIST TO STAND UP, STABLE STANDING WITH WALKER WHILE STAFF WIPED FRONT TO BACK. Z-GUARD APPLIED TO VERTICAL WOUND BETWEEN BUTTOCKS WHICH IS CURRENTLY HEALING AND NOT BLEEDING. GRANDDAUGHTER EVELIN IS VISITING FROM OUT OF TOWN. PATIENT IS SLEEPING IN CHAIR TONIGHT.
[2018-10-21 06:09] VITALS: BP 86/50
[2018-10-21 07:07] LABS: HEPATITIS B SURFACE AG Negative (Negative)
[2018-10-21 07:45] VITALS: BP 94/49
--- NOTE | 2018-10-21 15:51 | NUR ---
ASSUMED CARE AT APPROX 0715. PATIENT A/O X4. REPORTS HAD GOOD NIGHT AND GOOD REST LAST NIGHT. DAUGHTER SPENT A NIGHT WITH HER. PT WALKED WELL WITH PT THIS AM C/O LEFT KNEE PAIN 01/04, GIVE PRN HYDROCODONE, VOLTAREN GEL APPLIED ON KNEE AND BACK. GRAND SON AT BEDSIDE. OT GAVE BATH, REDNESS ON GROIN, CREAM APPLIED, INTERDRY FRABIC APPLIED. PINK ON BUTTOCK, BARRIER CREAM APPLIED. DIALYSIS ACCESS IS LEFT FOREARM FISTULA, GOOD BRUIT AND THRILL. PATIENT TRANSFERED X1 ASSIST PIVOT TO BED. DRESSING ON LLE CHANGED. OFFERED SUPPORTIVE CARE.ENCOURAGED PT TO GO TO DINNING ROOM FOR MEALS. ATE AT DINNING ROOM FOR LUNCH. MEDS GIVEN PER ORDERS. FALL PRECAUTIONS IN PLACE. CALL LIGHT WITHIN REACH. WILL CONTINUE TO MONITOR.
[2018-10-21 19:32] VITALS: BP 87/48
--- NOTE | 2018-10-22 03:28 | NUR ---
ASSUMED CARE AT 1900, ASSESSMENT COMPLETED. PT VERY DROWSY, DOZING OFF IN CHAIR; ASKED PT MULTIPLE TIMES IF SHE WANTED TO GET IN BED, EDUCATED ABOUT PRESSURE RELIEF FOR BUTTOCKS AND KEEPING LEGS ELEVATED, BUT PT REFUSED TO SLEEP IN BED. DENIED PAIN, NAUSEA, OR SOB. PLAN FOR DIALYSIS TODAY. NO OTHER CONCERNS, WILL CONTINUE TO MONITOR.
[2018-10-22 05:37] LABS: ALBUMIN 3.4 g/dL (3.4-5.0); CALCIUM 8.7 mg/dL (8.5-10.1); CREATININE 5.1 mg/dL (0.6-1.0); PHOSPHORUS 2.6 mg/dL (2.5-4.9); POTASSIUM 4.7 mmol/L (3.5-5.1)
[2018-10-22 05:44] LABS: HEMATOCRIT 36.8 % (37.0-47.0); HEMOGLOBIN 11.8 gm/dL (12.0-15.0); MCH 29.9 pg (26.0-34.0); MCHC 32.1 g/dL (28.0-37.0); RBC 3.96 mil/uL (4.20-5.00); RDW 20.8 % (10.5-14.5); WBC 9.1 thou/uL (4.0-11.0)
[2018-10-22 08:04] VITALS: BP 81/51
--- NOTE | 2018-10-22 08:21 | NUR ---
ASSUMED CARE AT APPROX 0715. REPORTS SLEPT GOOD LAST NIGHT IN RECLINER. HAD GOOD NIGHT AND GOOD REDNESS ON GROIN, CREAM APPLIED, INTERDRY FRABIC APPLIED. PINK ON BUTTOCK, BARRIER CREAM APPLIED. DIALYSIS ACCESS IS LEFT FOREARM FISTULA, GOOD BRUIT AND THRILL. PATIENT TRANSFERED X1 ASSIST PIVOT TO BED. DRESSING ON LLE C/D/I OFFERED SUPPORTIVE CARE.ENCOURAGED PT TO GO TO DINNING ROOM FOR MEALS. MORNING MEDS GIVEN PER ORDERS. DENIES PAIN, SOB, N/V. REASSESSMENT PER CHART. VSS ON RA. B/P 81/51,HR 74. CONTINUE TO BE ON MIDODRINE TID. HER GOALS TO CONTINUE WITH THERAPY. DIALYSIS AFTER THERAPY. FALL PRECAUTIONS IN PLACE. CALL LIGHT WITHIN REACH. WILL CONTINUE TO MONITOR.
--- NOTE | 2018-10-22 12:11 | NUR ---
team meeting, recommendation: meds, bills, and food. pt requested to see diet for suggestion on renal and heart diet. outpt neuro pysch recommended. will need fww. re-team with dc 10/30/18 hh( pt ot nursing,), no driving until cleared by pcp. cont with oupt dialysis at [facility].
--- NOTE | 2018-10-22 14:54 | NUR ---
Followup: spoke with daughter again over phone to discuss food preferences and daughter also requesting another copy of education materials for renal diet. Able to speak with pt while on dialysis and she has alternative menu with items allowed. Outside food items discouraged. Remains low nutrition risk
[2018-10-22 20:05] VITALS: BP 90/45
--- NOTE | 2018-10-23 02:53 | NUR ---
PT ALERT AND ORIENTED X 4. SLEEPS IN RECLINER. FELICE WRAP C/D/I TO LEFT LEG. PT C/O PAIN IN HER LEFT LEG. HYDROCODONE GIVEN AT HS. ALSO C/O HEADACHE AND TYLENOL GIVEN ORDERED. CHAIR ALARM ON FOR SAFETY. PT APPEARS TO BE SLEEPING ON HOURLY ROUNDS.
--- NOTE | 2018-10-23 07:00 | NUR ---
cm visited with pt at bedside, she up in recliner " i did not sleep well, going to have breakfast then therapy. you spoke with and going home on is what he said"/daisy. education on recommendation of dc 10/30/18 with [facility], hh (pt, ot, nursing, st, sw and bath [facility]), no working at this time or driving until cleared by pcp, and assist with medication. " my drives me to dialysis already. i manage his medication and mine. i have manage medication for us. home health will be fine"/daisy. hh list provided, " ok to send to [facility]."/pt. referral sent to [facility] and will cont following as needed for dc needs.
[2018-10-23 07:30] VITALS: BP 85/54
--- NOTE | 2018-10-23 10:20 | NUR ---
Nutrition: assess d/t consult for renal/healthy diet. Pt in therapy for most of morning. Left renal diet handout in room. Will follow-up 10/25 to address nutrition concerns.
[2018-10-23 13:29] VITALS: BP 95/60
--- NOTE | 2018-10-23 15:49 | NUR ---
WOUND CARE FOLLOW UP; ROUNDING WITH DR NIKKI HUNG SOLAR ENERGY TECHNICIAN. THE LE WOUND LOOKS LESS ANGRY TODAY WELL LESS PAIN PATIENT STATES. CONTINUE PLAN OF CARE. DISCUSSED WITH RN
--- NOTE | 2018-10-23 17:56 | NUR ---
ASSUMED CARE AT APPROX 0715. PATIENT A/O X4. C/O PAIN IN LLE, MEDICATED PRIOR TO DIALYSIS AVAILABLE. DRESSING TO LLE CHANGED THIS AM AFTER PAIN MED HAD BEEN GIVEN BY HAND ENDBAND CUTTER EARLY THIS MORNING. WOUND PHOTOS OBTAINED. DRESSING CHANGED AGAIN BY WOUND CARE TEAM LATER THIS DAY, PER PATIENT. PATIENT PARTICIPATED IN THERAPY. LEFT UNIT FOR DIALYSIS APPROX 1345. FALL PRECAUTIONS IN PLACE. MAG CITRATE HELD PRIORITY OF CARE PATIENT WOULD BE IN BED SEVERAL HOURS FOR DIALYSIS, WILL REPORT TO NIGHT RN. PATIENT CALLS APPROPRIATELY FOR ASSISTANCE. PIVOTS X ONE PERSON ASSIST. RESTING IN BED, ROUNDED ON WHILE IN DIALYSIS TO ADMINISTER EVENING MEDS. WILL CONTINUE TO MONITOR.
[2018-10-23 20:04] VITALS: BP 97/63
--- NOTE | 2018-10-24 03:26 | NUR ---
PT ALERT AND ORIENTED X 4. PT SLEEPS IN RECLINER. LEFT LEG DRESSING C/D/I. PT C/O PAIN IN LEFT LEG. HYDROCODONE GIVEN AT HS. MAG CITRATE GIVEN AT HS. NO RESULTS YET. PASSING FLATUS. CHAIR ALARM ON FOR SAFETY. PT APPEARS TO BE SLEEPING ON HOURLY ROUNDS.
[2018-10-24 08:30] VITALS: BP 76/47
--- NOTE | 2018-10-24 09:13 | NUR ---
ASSUMED CARE AT APPROX 0715. PATIENT A/O X4. REPORTS SLEPT WELL. C/O CONSTIPATION TOOK CITRATE MAG LAST NIGHT. UP TO BATHROOM,M PASSING GAS BUT UNABLE TO GO. NOTIFIED MICHEAL, RECEIVED SUPPOSITORY, WILL GIVE SUPPOSITORY. CONTINUE TO MONITOR BM. FALL PRECAUTIONS IN PLACE. PATIENT CALLS APPROPRIATELY FOR ASSISTANCE. UP WITH A WALKER/GB X ONE PERSON ASSIST. OT IS WORKING WITH PT IN BATHROOM AT THIS MOMENT. SORE ON BOTTOM IS BETTER. STILL HAS SOME REDNESS AT INNER THIGHT. ATE 75% BREAKFAST. PAIN IS MANAGEABLE. NO NEEDS OF PAIN MED AT THIS MOMENT. WILL CONTINUE TO MONITOR.
[2018-10-24 10:59] VITALS: BP 76/49
--- NOTE | 2018-10-24 13:48 | NUR ---
Followup on RD consult received. Pt on renal diet and states no questions regarding the diet, just unhappy with meals. Tired of choices available, especially rice and noodles as only starch option. Listened to concerns and will forward food preferences. Requesting mash potatoes, will allow twice weekly since pt K level is 4.7. Has chronic nonhealing leg ulcer-wound care follows. Also on MVI and phos binder. Drinking 100% of nepro at lunch daily. Remains low nutrition risk
--- NOTE | 2018-10-24 19:30 | NUR ---
ASSUMED CARE AT APPROX 0700. PATIENT A/O X4. VSS. SATS MAINTAINED ON 3L O2 PER NC AND UP TO 4-5L NEED DURING THERAPY. REPORT SLEPT GOOD AT NIGHT. C/O BACK PAIN AND HEELS AT 5/10. REPORTED PAIN IS TOLERABLE. TUBI HOT STONE SETTER TO BLE IN PLACE, BLE EDEMA NOTED. PATIENT REPORTED DISCOMFORT IN HEELS- HEELS FLOATED, SLIGHTLY SOFT, CRACKED SKIN NOTED ON RIGHT HEEL. PT HAS BEEN UP AND PARTICIPATED WITH OT/PT TODAY. UP TO BATHROOM WITH WALKER. DR. PULLIAM CAME TO ROUND PT AND RESUMED PT TO LAS. OFFERED SUPPORTIVE CARE. ENCOURAGED PT TO VOICE HER NEED. TOOK MEDS WITHOUT DIFFICULY. HER GOALS TO CONTINUE WITH THERAPY AND GET STRONGER. CONTINUE TO BE ON CEFTIN FOR PNEUMONIA. LUNG SOUND CLEAR AND DIMINISHED ON THE BASES, CHEST XRAY STILL SHOW LL ATELECTASIS AND PLEURAL EFFUSION. DISCUSSED ABOUT IS AND DEEP BREATH. CONTINUE TO BE ON BREATHING TX. FALL PRECAUTIONS IN PLACE. RESTING IN BED AT CHANGE OF SHIFT. GAVE BISACODYL ORDERED. NO BM FOR A WEEK, GIVE WARM APPLE JUICE. GIVE REPORT NIGHT NURSE CONTINUE TO MONITOR BM.
[2018-10-24 20:32] VITALS: BP 90/45
--- NOTE | 2018-10-24 23:50 | NUR ---
PT ASSESSMENT COMPLETED AND VSS. MEDS GIVEN ORDERED AND WELL TOLERATED. FALL PRECAUTIONS IN PLACE. EMESIS X 1. ZOFRAN HELPFUL. PRN PAIN MEDICATION WORKING WELL. PT BP VERY GOOD THIS EVENING. UP TO BSC WITH ASST X 2/GAIT/WALKER. MODERATE BM. ZGUARD CREAM APPLIED TO BUTTOCK/AND FOLDS ORDERED. PICTURES TAKEN OF SKIN WOUNDS FROM BEDPAN IN DIALYSIS PER DAY RN. SLEEPING WELL. WILL CONTINUE TO MONITOR FREQUENTLY.
[2018-10-25 06:39] VITALS: BP 77/52
[2018-10-25 09:05] VITALS: BP 77/52
--- NOTE | 2018-10-25 10:09 | H ---
[facility] [place] [address] HISTORY AND PHYSICAL Name: GINA HUGHES Room #: 512-P ADM IN M.R.#: [id number] Admission: 10/16/18 ������������������ Attend Phys: Rachid Galvan MD Discharge: ������������������ Date of : 47 Report #: [id number] THIS REPORT FOR: //name// CC: Rachid Sanchesihsan Hyatt DATE OF SERVICE: 10/16/2018 HISTORY AND PHYSICAL AND POST-ADMISSION PHYSICIAN EVALUATION The patient was seen yesterday, 10/16/2018. HISTORY OF PRESENT ILLNESS: The patient is a 73-year-old female who was originally admitted to the acute inpatient [facility]hab [facility] on 10/03/2018 for critical illness myopathy after a prolonged hospital stay. She had problems with symptomatic hypotension, which is a chronic problem for her and was unable to tolerate therapies with her blood pressure in the 70s/40s. She then developed a low heart rate in the 20s and 30s and her O2 sat was found to be 73% on room air and she was transferred back off the acute inpatient rehabilitation [facility] down to the intensive care unit. Her pacemaker was interrogated. She was followed on the acute hospital side. She is noted to have Afib, now with episodes of sinus bradycardia with a pacemaker in place, not capturing all beats. Cardiology was involved and her device was interrogated and adjusted. She was treated with fluids. She had her wound followed closely by the wound care team, monitored by Nephrology. She had a left leg wound that was debrided by Surgery, 10/15/2018, Dr. Rich. It was felt she was tolerating her therapies better and has now been readmitted for acute in-hospital inpatient rehabilitation. PAST MEDICAL HISTORY: Includes cardiac ablation in 2002 secondary to atrial fibrillation. She has history of morbid obesity, chronic left calf wound, degenerative arthritis, prior history of pelvic fracture. MEDICATIONS: Please see the full medication listing. This includes vitamins, herbals, and supplements. SOCIAL HISTORY: Lives in a house with her . Premorbid cane ambulator for the last couple of years. There is one step into the house. 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 She did do some driving. 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 There is a daughter in [place]. REVIEW OF SYSTEMS: No current complaints of chest pain, shortness of breath, abdominal discomfort. No numbness or tingling. No recent fever or chills. PHYSICAL EXAMINATION: GENERAL: The patient was seen yesterday, 10/16/2018 after admission. She was [address] [address] HISTORY AND PHYSICAL Name: GINA HUGHES Room #: 512-P [facility] IN M.R.#: [id number] Admission: 10/16/18 ������������������ Attend Phys: Rachid Galvan MD Discharge: ������������������ Date of : 47 Report #: [id number] in no distress. VITAL SIGNS: Temperature was 97.5, pulse 62, respirations 20, blood pressure 100/58. Most recent height and weight are 5 feet 3 and 224 pounds. HEENT: Appeared to be benign. NEUROLOGIC: Cranial nerves grossly intact. Facies are symmetric. CHEST: Sounded clear to auscultation. CARDIOVASCULAR: Sounded irregularly irregular. ABDOMEN: Significant obesity, bowel sounds positive, nontender. GENITOURINARY AND RECTAL: Deferred. EXTREMITIES: She does have functional range of motion of both upper and lower extremities. Strength is a grade 3+/5. DTRs are decreased. Her left leg is dressed post the debridement. She has reasonable sensation. She has been mod assist with basic sit to stand with the ability to ambulate a short distance with a front-wheeled walker. ASSESSMENT: A 73-year-old white female readmitted with the following problem list: 1. Critical illness myopathy. 2. Hypotension. She has been given midodrine t.i.d. 3. End-stage renal disease, on hemodialysis. 4. Left leg wound, status post incision and drainage, 10/15/2018. 5. History of atrial fibrillation, pacemaker has been interrogated and settings were changed. 6. Hyperlipidemia. 7. Hypothyroidism. 8. Significant exogenous obesity. 9. Back pain. PLAN: The patient has been readmitted for acute in-hospital inpatient rehabilitation. From a postadmission physician evaluation perspective, there are no relevant changes since the preadmission screening. Please see the above review of prior and current medical and functional conditions and comorbidities. Please see the patient's previous and current functional status. As far as risk of complications, the patient has multiple medical comorbidities as noted above. Initial plan of care involves the interdisciplinary acute inpatient rehabilitation program with goal of maximizing the patient's functional independence, so she can hopefully return back to her prior living situation. Measurable functional goals would be for the patient to become modified independent with transfers, mobility, ADLs, so she can hopefully return back to her prior living situation. We will also have speech therapy, assess cognition and communication. Prognosis is reasonably good with estimated length of stay probably at least 2-3 weeks and potentially longer. The patient does meet diagnostic criteria for an acute in-hospital inpatient rehabilitation stay. She has considerable extremity weakness with critical illness myopathy and has had two ICU stays. She meets the medical necessity [address] [address] HISTORY AND PHYSICAL Name: GINA HUGHES Room #: 512-P ADM IN M.R.#: [id number] Admission: 10/16/18 ������������������ Attend Phys: Rachid Galvan MD Discharge: ������������������ Date of : 47 Report #: [id number] criteria. We will have the multiple employee relations consultant physicians continue to follow up. She has the tolerance for therapies and we will work on gradually increasing this. She is on the low endurance program with her dialysis. She does have appropriate discharge goals back to the home setting. ��������������������������������������������� <ELECTRONICALLY SIGNED> ���������������������������������������� By: Rachid Galvan MD ��������������������������������������������� 10/25/18 1009 [id number] Rachid Galvan MD /PMT
--- NOTE | 2018-10-25 10:45 | NUR ---
ASSUMED CARE AT 0700. PATIENT IS ALERT AND ORIENTED X2. PATIENT IS ASHEN IN COLOR. PATIENT IS UP IN CHAIR. PATIENT LUNGS ARE CLEAR AND DEMINISHED. PATIENT ABD IS SOFT WITH BSX4. PATINET REFUSED BREAKFAST. PATIENT IS REFUSING THERAPIES. DR. ANDERSON NOTIIFED. INSURANCE AUDITOR NOTIFIED. NEW ORDER RECIEVED FOR THERAPIES TOLERATED. PATIENT HAS FELICE WRAP TO LEFT LOWER EXTREMITY. FALL AND SAFETY PROTOCOLS IN PLACE. C/O ABD CRAMPS. CONTINUES TO REFUSE ALL THERAPIES. WILL CONTINUE TO MONITER.
--- NOTE | 2018-10-25 14:26 | NUR ---
WOUND CARE FOLLOW UP; ROUNDING WITH DR TANIA JORDAN AND ABHILASH STEEL LAYER. THE PATIENT WOUND IS STALLED. NO S/S OF INFECTION. PATIENT WAS EXTREMLY SLEEPY RECOMMENDATIONS; WE WILL DG GENTAMYCIN CREAM AND CHANGE TO HYDROGEL DISCUSSED WITH RN
[2018-10-25 20:04] VITALS: BP 70/40
--- NOTE | 2018-10-26 02:40 | NUR ---
PT ALERT AND ORIENTED X 4. SLEEPS IN RECLINER. 02 ON AT 2L PER NC CONT. 02 SAT 100%. LEFT LEG DRESSING C/D/I. PT REPORTS PAIN IN LEFT LEG. STATED THEY'RE NOT GIVING ME ANYTHING FOR PAIN BECAUSE MY BP IS SO LOW. BP 70/40 AT START OF SHIFT. VOLTAREN GEL TO BACK ORDERED. CHAIR ALARM ON FOR SAFETY. PT APPEARS TO BE SLEEPING ON HOURLY ROUNDS.
[2018-10-26 07:30] VITALS: BP 75/40
[2018-10-26 14:20] LABS: HEMATOCRIT 34.2 % (37.0-47.0); HEMOGLOBIN 11.1 gm/dL (12.0-15.0); MCH 29.7 pg (26.0-34.0); MCHC 32.4 g/dL (28.0-37.0); MCV 91.7 fL (80.0-100.0); RBC 3.73 mil/uL (4.20-5.00); RDW 20.3 % (10.5-14.5); WBC 8.5 thou/uL (4.0-11.0)
[2018-10-26 14:27] LABS: CALCIUM 9.4 mg/dL (8.5-10.1); POTASSIUM 4.7 mmol/L (3.5-5.1)
[2018-10-26 14:33] LABS: BE(vivo) -1.4 mmol/L (-2 to +3); PCO2 37.5 mmHg (35.0-45.0); PO2 82.8 mmHg (80.0-100.0); pH 7.406 (7.360-7.450); sO2 96.3 % (92.0-98.0)
--- NOTE | 2018-10-26 20:30 | NUR ---
ASSUMED CARE AT APPROX 0715. PATIENT A/O X4, PATIENT'S SKIN COLOR DUSKY. O2 SATS MAINTAINED ON 2L OXYGEN PER NC. C/O ABDOMINAL PAIN. TYELNOL ADMINISTERED, NARCOTIC PAIN MEDS HELD DUE TO LOW BLOOD PRESSURE. BOWEL SOUNDS ACTIVE, ABDOMEN SOFT, TENDER. BLOOD PRESSURE LOW, CONSISTENT WITH PAST DAYS. PATIENT UNABLE TO COMPLETE THERAPY MINUTES. REPORTED LABS AND ASSESSMENT TO DIALYSIS PERSONNEL. DIALYSIS ATTEMPTED THIS DATE, PATIENT HAD BRIEF EPISODE OF UNRESPONSIVENESS PER DIALYSIS PERSONEL, DIALYSIS STOPPED. NEPHROLOGY CALLED, STAT LAB ORDERS - CBC, BMP, AND ABG'S- RECEIVED, LAB RESULTS REPORTED TO WWE WRESTLER. PATIENT'S BLOOD PRESSURE STABILIZED, PER NEPHROLOGY, PATIENT RETURNED TO UNIT. ONCE ON UNIT, PATIENT EXPRESSED DESIRE TO BE DNR, VERBALIZED THAT SHE DID NOT WANT COMPRESSIONS OR INTUBATION IF HER HEART STOPPED. HOSPITALIST PHYSICIAN CALLED, THIS NURSE ASKED HOSPITALIST TO ROUND ON PATIENT TO DISCUSS CODE STATUS & PALLIATIVE CARE CONSULT. ORDERS RECIEVED FOR TROPONIN LEVEL, IV FLUIDS, AND RANDOM CORTISOL. TROPONIN NEGATIVE. CIGAR MAKING MACHINE OPERATOR NOTIFIED, ROUNDED ON PATIENT. IV FLUIDS ADMINISTERED, PER ORDERS. BLOOD PRESSURE NOT IMPROVED. LACTIC ACID ORDERED, RESULTS ELEVATED, NOTIFIED PHYSICIANS. WWE WRESTLER ORDERED FOR NO FURTHER IV FLUIDS. PATIENT'S NOTIFIED OF EVENT IN DIALYSIS, WORK UP, AND PATIENT'S CONDITION. PRIOR TO CALLING, PATIENT STATED THAT SHE DID NOT WANT HER CHANGE IN CODE STATUS DISCLOSED TO HER . WHEN ASKED WHY, SHE STATED THAT HE WOULD DISAGREE WITH HER DECISION. PATIENT STATED THAT SHE WANTED TO TALK TO HER ABOUT IT HERSELF. PATIENT ENCOURAGED TO SPEAK WITH HER ABOUT HER WISHES SOON POSSIBLE. PATIENT MEDICATED WITH TYLENOL FOR PAIN. TRANSFERED TO CHAIR VIA WALTER LIFT DEVICE. LEGS ELEVATED. CALL LIGHT IN REACH. FALL PRECAUTIONS IN PLACE. RESTING IN RECLINER AT END OF SHIFT.
[2018-10-26 21:06] VITALS: BP 87/38
--- NOTE | 2018-10-27 01:32 | NUR ---
PT ASSESSMENT COMPLETED. BP CONTINUES TO BE LOW AND DR COREAS AND SLY WARE AWARE. PT SAT WNL ON 2L NC. PT VERY TIRED BUT TALKING WITH STAFF. CONTACTED DR COREAS AND SLY WARE REGARDING LAB RESULTS/LACTATE ELEVATION. DR COREAS SAID THAT WE WILL CONTINUE TO WATCH PATIENT AND DO NOT EVER GIVE AN IVF BOLUS. HE STATED THAT SHE DOES NOT TOLERATE THEM WELL. PT REMAINS VERY TIRED BUT AROUSES WELL. SLEEPING AT THIS TIME. ASST WITH FREQUENT REPOSITION IN THE CHAIR. PT REFUSES TO SLEEP IN THE BED. CREAMS APPLED TO COCCYX/GROIN ETC. JANEL HOSE REMOVED AT HS. DSG ON L CALF DRY AND INTACT. WILL CONTINUE TO MONTIOR FREQUENTLY.
[2018-10-27 07:45] VITALS: BP 58/42
--- NOTE | 2018-10-27 12:14 | NUR ---
ASSUMED CARE AT 0700. PATIENT IS ALERT AND ORIENTED X2, BUT FORGETFUL. PATIENT IS ASHEN IN COLOR. PATIENT IS BEING ASSISTED WITH MEALS. PATIENT C/O PAIN IN HER LEG AND BOTTOM. WALTER LIFT USED TO PUT PATIENT IN BED. PATIENT CLEANED UP AND CREAM APPLIED TO HER BOTTOM. DAVIAN CARE GIVEN. PATIENT TURNED TO HER RIGHT SIDE. DR. COREAS HERE TO SEE PATIENT. KUB ORDERED. LEG DRESING CHANGED. WILL CONTINUE TO MONITER.
--- NOTE | 2018-10-27 12:19 | NUR ---
DR. TUCKER ORDERED SOLUMEDROL FOR PATIENT. PATIENT TURNED TO HER BACK TO HAVE LUNCH. S.L. IN HER RIGHT WRIST IS PATENT AND INTACT. WILL CONTINUE TO MONITER.
[2018-10-27 19:07] VITALS: BP 136/88
[2018-10-27 23:47] VITALS: BP 87/55
--- NOTE | 2018-10-28 00:48 | NUR ---
PT ASSESSMENT COMPLETED. BP WNL THIS EVENING. PT CLEARLY HAVING PAIN. MEDS GIVEN ORDERED. PT MOANING AND C/O PAIN - PRN FENTANYL HELPFUL. CONTACTED RELAY OPERATOR CHAZ AND PER ORDERS GAVE A TAP WATER ENEMA. 0 BM SO FAR DURING SHIFT. ASST WITH FREQUENTLY REPOSITION FOR COMFORT. SLEEPING WELL AT THIS TIME. WILL CONTINUE TO MONITOR FREQUENTLY. PT NOT INTERESTED IN EATING OR DRINKING AT THIS TIME. VERY WEAK. CONFUSED. DR DIANE.
[2018-10-28 05:22] LABS: HEMATOCRIT 36.4 % (37.0-47.0); HEMOGLOBIN 11.5 gm/dL (12.0-15.0); MCH 29.3 pg (26.0-34.0); MCHC 31.5 g/dL (28.0-37.0); RBC 3.91 mil/uL (4.20-5.00); WBC 13.6 thou/uL (4.0-11.0)
[2018-10-28 05:37] LABS: ALBUMIN 3.2 g/dL (3.4-5.0); CALCIUM 10.2 mg/dL (8.5-10.1); POTASSIUM 5.8 mmol/L (3.5-5.1); TOTAL BILIRUBIN 2.3 mg/dL (<0.1-1.0)
[2018-10-28 05:40] LABS: CREATININE 5.5 mg/dL (0.6-1.0)
[2018-10-28 08:00] VITALS: BP 70/36
--- NOTE | 2018-10-28 08:02 | NUR ---
DURING THE NIGHT PT WAS HAVING INCREASED PAIN. MOANING AND CRYING WITH PAIN BUT UNABLE TO OPEN HER EYES OR COMMUNICATE WITH STAFF. SPOKE WITH DAY CARE HOME PROVIDER REGARDING PT STATUS. SMALL DOSES OF FENTANYL GIVEN DURING THE NIGHT AND VERY HELPFUL. 0 RESULT AFTER GIVING TAP WATER ENEMA. CONTACTED MICHEAL THIS AM BECAUSE PT IS UNABLE TO WAKE UP ENOUGH TO SWALLOW HER PILLS INCLUDING HER MEDIDRINE. MICHEAL WILL FOLLOW. REPORT GIVEN TO DAY RN SISTER COURTNEY.
--- NOTE | 2018-10-28 08:23 | NUR ---
ATTEMPED TO CONTACT PTS THIS AM AND UPDATE HIM ON PT STATUS. PTS DID NOT ANSWER THE PHONE. INFORMED DAY RN. SHE WILL TRY TO CONTACT PTS AGAIN SHORTLY.
--- NOTE | 2018-10-28 10:30 | NUR ---
cm notified by dr taylor had question rt dcp, if pt wants to cont dialysis or stop, pt cont difficulty with bp and dialysis. cm passed on information to rehab physician, pt has been made dnr and dr thao consult. will cont following as needed for dc needs. bedside nurse to notified pt of new orders. cm tried to visit with pt at bedside, eyes open and closed, o2 per nc, diff with verbal communication, last weak clear speech during visit.
[2018-10-28 11:16] VITALS: BP 86/54
--- NOTE | 2018-10-28 11:18 | NUR ---
ASSUME PT CARE AT 0700. RECEIVED REPORT FROM NIGHT NURSE PT HAS BEEN DOING WELL. NOTIFIED MICHEAL AND DR. TAVAREZ THAT PT IS NOT ABLE TO TAKE PO MEDS. NPO ORDER OBTAINED. MOUTH CARE DONE. MOANING AND CRYING WITH PAIN BUT UNABLE TO OPEN HER EYES OR COMMUNICATE WITH STAFF. B/P WAS 70/36 HR 94 AT 0800. PT RESTLESS ON AND OFF. RECHECKED AT 11AM B/P NOW 86/54, HR 85. GIVE PRN FETANYL IV 12.5MG VIA RIGHT HAND IV. PT IS CALMING NOW. DRESSING ON LLE CHANGED. WOUND LOOKS BETTER, DRY, LESS DRAINAGE. REDNESS ON GROIN AND BETWEEN BUTTOCK BETTER. WITH TURNIN Q2HR. PT REFUSED TO TURN AND OPENED HER EYES WHILE STAFF TURNING HER. WILL OBTAIN LOW AIR MATRESS NEED WHEN DR. MCGEE COMES. DR. MCGEE CALLED AND HE WILL BE HERE AT 1300. WAS CALLED AND HE IS AWARE PT IS DNR NOW AND HE WILL TRY TO BE HERE TO TALK TO DR. MCGEE. PT IS RESTING COMFORTABLE IN BED. ON 2L OF OXGYGEN SAT 96% ON RA. REASSSSMENT PER CHART. LABS REVIEWED AND DOCTOR [facility] AWARE. FALL PRECAUTION IN PLACE. CALL LIGHT WITHIN REACH. CHECK FREQUENTLY FOR NEEDS AND SAFETY. WILL CONTINUE TO MONITOR.
--- NOTE | 2018-10-28 14:24 | NUR ---
mechanical planner sent referral to [facility] fax [phone]. Patient is ready as soon as a bed is available (for pain and other symptoms).
[2018-10-28 16:13] VITALS: BP 113/91
[2018-10-28] MEDS ORDERED: FENTANYL 0.50 MCG/ML IV PUSH (16:16)
--- NOTE | 2018-10-29 10:41 | NUR ---
JAYDE called and left message with [facility] to let them know patient won't be returning for dialysis.
--- NOTE | 2018-10-30 16:34 | HC ---
[facility] [place] [address] CONSULTATION Name: GINA HUGHES Room #: 512-P [facility] IN M.R.#: [id number] Admission: 10/16/18 ������������������ Attend Phys: Rachid Galvan MD Discharge: 10/28/18 ������������������ Date of : 47 Report #: [id number] THIS REPORT FOR: //name// CC: Rachid Leeore Edmar CHIEF COMPLAINT: Hypotension. HISTORY OF PRESENT ILLNESS: The patient is a 73-year-old female who presented originally on 09/25/2018 to [facility] with apparent septic shock, likely due to left lower extremity wound and subsequent cellulitis. The patient has subsequently developed an abscess and had debridement and I and D on 10/15/2018 after she was originally admitted to rehab and then had to be readmitted for recurrent difficulties including atrial fibrillation with bradycardia. Apparently, she also at that time had been found to have a pacemaker that was not capturing. Settings were adjusted. She has a known history of end-stage renal disease and significantly has had recent hypotension over the last few days with any attempt at dialysis. Unfortunately, because of this, she is not an excellent candidate for dialysis at this time. Her most recent labs indicate potassium is increasing to 5.8 and creatinine is 5.5. The patient's is present at my visit and he is aware of this recent complication and her prior history in the hospital. Unfortunately, he also knows that this is not likely a good outcome and that unfortunately she is progressing in her overall condition. He desires, upon discussion with other physicians, to explore the possibility of hospice. Apparently, hospice health has been discussed with the patient's . The patient herself is not significantly able to answer questions. She will occasionally respond to affirmative or negative, but it does not seem sensical. She does apparently have left lower extremity pain per , pain with any movement. She was also found to recently have an ileus and possibly pain with any abdominal palpation. PAST MEDICAL HISTORY: Atrial fibrillation, status post ablation in 2002. She additionally has had end-stage renal disease, has been on dialysis for approximately 12 years. Recent hypotension, requiring midodrine. She has severe tricuspid regurgitation. She has also had peripheral artery disease with an angiogram and a JEN placement to left tibial artery. She has a history of coronary artery disease, but unknown exactly what the status is. PAST SURGICAL HISTORY: Cardiac ablation, again stent placement. ALLERGIES: States PENICILLIN, LISINOPRIL, MORPHINE. When asked about MORPHINE allergy, was not aware of what that entailed. I did call the dialysis center and they stated that it was RASH, HIVES and POSSIBLE DIFFICULTY BREATHING WITH NAUSEA. FAMILY HISTORY: Noncontributory. [facility] [address] [place] [address] CONSULTATION Name: GINA HUGHES Room #: 512-P [facility] IN M.R.#: [id number] Admission: 10/16/18 ������������������ Attend Phys: Rachid Galvan MD Discharge: 10/28/18 ������������������ Date of : 47 Report #: [id number] SOCIAL HISTORY: Again, present for my visit. She has been changed to DNR status. She is not currently a tobacco, alcohol or illicit drug user. MEDICATIONS: I reviewed inpatient medications. She, at this time, has fentanyl for pain 12.5 mcg q.2 hours which does not seem to be controlling her pain at this time. REVIEW OF SYSTEMS: Difficult to obtain, again due to HPI. PHYSICAL EXAMINATION: VITAL SIGNS: Temperature 36.8, pulse 85, respirations 18, blood pressure 86/54, 96% on cannula at this time. GENERAL: The patient is not alert. Unable to assess orientation. She does not appear to be in acute distress currently. HEENT: No scleral icterus. No conjunctival injection. CARDIOVASCULAR: Slight tachycardia. Otherwise, she does have a significant systolic murmur. RESPIRATORY: Clear to auscultation anteriorly. ABDOMEN: She has tenderness to palpation diffusely noted and some distention noted as well with diminished bowel sounds. LABORATORY DATA: Include CBC: White blood cell 13.6, hemoglobin 11.5, platelets 163. Potassium 5.8, creatinine 5.5, sodium 134. AST 315, ALT 156. ASSESSMENT AND PLAN: 1. End-stage renal disease. Unfortunately, she is not tolerant of further dialysis at this time, possible recurrent sepsis syndrome. She has continued overall decline in her overall condition. was, prior to my visit, interested in talking about hospice as a possibility. He is interested in hospice health. I have discussed this with window caser today. Discussed that code status is DNR and confirmed that. I spent approximately 30 minutes on discussion of advanced care planning. We will await bed availability as she is likely to qualify for hospice health care. 2. Left lower extremity wound, again with recurrent possible infection leading to this difficulty with hypotension. Unfortunately, given her overall state may not likely improve, likely desire a palliative type of care for this wound. Did increase fentanyl to q.1 hour p.r.n. and may need to increase it further. She does have good IV access at this time. 3. Delirium, contributing to overall condition above. I have discussed with the patient's the state of this condition. [address] [address] CONSULTATION Name: GINA HUGHES Room #: 512-P [facility] IN M.R.#: [id number] Admission: 10/16/18 ������������������ Attend Phys: Rachid Galvan MD Discharge: 10/28/18 ������������������ Date of : 47 Report #: [id number] Thank you very much for this consultation. Please contact me for any further questions regarding this patient. ��������������������������������������������� <ELECTRONICALLY SIGNED> ���������������������������������������� By: Amilcar Overton DO ��������������������������������������������� 10/30/18 [id number] [id number] Amilcar Overton DO /nt
== END 2018-10-28 17:58 | disposition hospice, home (50) | DRG 91 ==
PROVIDERS: Internal Medicine Nephrology; ADMIT Physical Medicine & Rehabilitation
PROC: 5A1D70Z Performance of Urinary Filtration, Intermittent, Less than 6 Hours Per Day (ICD-10-PCS; principal; 2018-10-17)
PROC: 5A1D70Z Performance of Urinary Filtration, Intermittent, Less than 6 Hours Per Day (ICD-10-PCS; 2018-10-19)
PROC: 5A1D70Z Performance of Urinary Filtration, Intermittent, Less than 6 Hours Per Day (ICD-10-PCS; 2018-10-22)
PROC: 5A1D70Z Performance of Urinary Filtration, Intermittent, Less than 6 Hours Per Day (ICD-10-PCS; 2018-10-23)
PROC: 5A1D70Z Performance of Urinary Filtration, Intermittent, Less than 6 Hours Per Day (ICD-10-PCS; 2018-10-26)
DX: G72.81 Critical illness myopathy (principal); N18.6 End stage renal disease; L97.929 Non-pressure chronic ulcer of unspecified part of left lower leg with unspecified severity; K56.7 Ileus, unspecified; Z68.41 Body mass index [BMI] 40.0-44.9, adult; I95.9 Hypotension, unspecified; I48.91 Unspecified atrial fibrillation; E66.01 Morbid (severe) obesity due to excess calories; M19.90 Unspecified osteoarthritis, unspecified site; E78.5 Hyperlipidemia, unspecified; E03.9 Hypothyroidism, unspecified; M54.9 Dorsalgia, unspecified; R53.81 Other malaise; I73.9 Peripheral vascular disease, unspecified; I25.10 Atherosclerotic heart disease of native coronary artery without angina pectoris; Z66 Do not resuscitate; L30.8 Other specified dermatitis; G31.84 Mild cognitive impairment of uncertain or unknown etiology; K59.00 Constipation, unspecified; Z88.6 Allergy status to analgesic agent; Z88.8 Allergy status to other drugs, medicaments and biological substances; Z95.0 Presence of cardiac pacemaker; Z99.2 Dependence on renal dialysis; Z95.5 Presence of coronary angioplasty implant and graft; Z88.0 Allergy status to penicillin; Z90.49 Acquired absence of other specified parts of digestive tract; Z90.710 Acquired absence of both cervix and uterus; Z80.8 Family history of malignant neoplasm of other organs or systems
CPT/HCPCS: 10112; 32100